=== PATIENT | male | born 1975 | race Caucasian/White ===

== ENCOUNTER 2016-12-27 10:52 | Inpatient (IN) | payer OTHER ==
[~2016-12-27] VITALS: Ht 188 cm; Wt 108.9 kg
[2016-12-27] MEDS ORDERED: IV NORMAL SALINE 1000ML BAG 1,000 ML IV SCH (12:00)
[2016-12-27] MEDS ORDERED: LEVOFLOXACIN PER PHARMACY MC PRN (12:00)
[2016-12-27] MEDS ORDERED: 0.9 % SODIUM CHLORIDE 10 ML DISP.SYRIN. IV PRN (12:00)
[2016-12-27] MEDS ORDERED: FENTANYL PF 100 MCG/2 ML VIAL. IV ONE (12:00)
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
[2016-12-27 12:42] LABS: CALCIUM 9.2 mg/dL (8.5-10.1); GFR 82.3; POTASSIUM 3.5 mmol/L (3.5-5.1)
[2016-12-27 12:49] LABS: ALBUMIN 4.1 g/dL (3.4-5.0); ALBUMIN/GLOBULIN RATIO 0.9 (1.0-1.7); TOTAL BILIRUBIN 0.8 mg/dL (0.2-1.0); TOTAL PROTEIN 8.5 g/dL (6.4-8.2)
[2016-12-27 12:57] LABS: BASO # 0.1 x10^3/uL (0.0-0.2); BASO % 1 % (0-3); EOS % 1 % (0-3); HEMATOCRIT 39.2 % (39.0-53.0); HEMOGLOBIN 13.3 g/dL (13.0-17.5); LYMPH # 1.5 x10^3/uL (1.0-4.8); LYMPH % 17 % (24-48); MEAN CORPUSCULAR HEMOGLOBIN 31 pg (25-35); MEAN CORPUSCULAR HGB CONC 34 g/dL (31-37); MEAN CORPUSCULAR VOLUME 92 fL (79-100); MONO % 8 % (0-9); NEUT % 74 % (31-73); PLATELET COUNT 235 x10^3/uL (140-400); RED BLOOD COUNT 4.29 x10^6/uL (4.30-5.70); RED CELL DISTRIBUTION WIDTH 12.8 % (11.5-14.5); WHITE BLOOD COUNT 9.2 x10^3/uL (4.0-11.0)
--- NOTE | 2016-12-27 13:01 | PDOC ---
Infectious Disease Note Vital Sign Vital Signs Vital Signs Date Time Temp Pulse Resp B/P Pulse Ox O2 Delivery O2 Flow Rate FiO2 12/27/16 11:04 98.4 66 20 125/83 98 98.4 Labs Lab Laboratory Tests Test 12/27/16 12:20 Sodium Level 141mmol/L (136-145) Potassium Level 3.5mmol/L (3.5-5.1) Chloride Level 101mmol/L (98-107) Carbon Dioxide Level 29mmol/L (21-32) Anion Gap 11 (6-14) Blood Urea Nitrogen 14mg/dL (8-26) Creatinine 1.0mg/dL (0.7-1.3) Estimated GFR (Cockcroft-Gault) 82.3 BUN/Creatinine Ratio 14 (6-20) Glucose Level 100mg/dL (70-99) Calcium Level 9.2mg/dL (8.5-10.1) Total Bilirubin 0.8mg/dL (0.2-1.0) Aspartate Amino Transf (AST/SGOT) 44U/L (15-37) Alanine Aminotransferase (ALT/SGPT) 40U/L (16-63) Alkaline Phosphatase 72U/L (46-116) Total Protein 8.5g/dL (6.4-8.2) Albumin 4.1g/dL (3.4-5.0) Albumin/Globulin Ratio 0.9 (1.0-1.7) Random Vancomycin Level mcg/mL Objective Assessment Preseptal cellulitis rt Hep C Plan Plan of Care vanc and zosyn also add clinda for 3 days bc supportive care antiinflammatory d/w ER physician DIDIER HASSAN MD Dec 27, 2016 13:01
[2016-12-27] MEDS ORDERED: IOHEXOL 300 MG/ML 75 ML VIAL IV ONE (13:30)
[2016-12-27] MEDS ORDERED: CONTRAST GIVEN MC PRN (13:45)
[2016-12-27] MEDS ORDERED: MORPHINE SULFATE 10 MG/ML VIAL. IV ONE (13:45)
[2016-12-27] MEDS ORDERED: MEROPENEM 500 MG in IV NORMAL SALINE 50ML 50 ML IV ONE (14:00)
[2016-12-27] MEDS ORDERED: CLINDAMYCIN 600MG PREMIX 50 ML IV ONE (14:00)
[2016-12-27] MEDS ORDERED: VANCOMYCIN 2 GM in IV NORMAL SALINE 500ML BAG 500 ML IV ONE (14:00)
--- NOTE | 2016-12-27 14:57 | PDOC1 ---
History and Physical Date of Admission Date of Admission DATE: 12/27/16 TIME: 14:49 Identification/Chief Complaint Chief Complaint facial swelling Source Source: Chart review, Patient History of Present Illness History of Present Illness Mr. Coppola, is a 41 year old male, incerated at [facility], admit from ER, with marked right facial swelling and redness that started 0500, noted prior history of periorbital cellulitis 4 mos ago, tx at [facility]. no fall, noinjury, no elicit, remote maxillofacial trauma from prior injury. . He states that he did have surgical debridement done at that time. He denies any history of recurrent skin infections. He denies history of diabetes. He denies fevers, chills, myalgias or arthralgias. It is reported the patient received a dose of vancomycin intravenously yesterday and then was receiving a dose this morning. The strength of the a dose is not known. Past Medical History Cardiovascular: No pertinent hx Pulmonary: No pertinent hx GI: No pertinent hx Heme/Onc: No pertinent hx Musculoskeletal: low back pain Rheumatologic: No pertinent hx Infectious disease: No pertinent hx ENT: No pertinent hx Past Surgical History Past Surgical History: Other Family History Family History: No Significant Social History Smoke: No ALCOHOL: none Current Problem List Problem List Problems Medical Problems: (1) Cellulitis Status: Acute Problems: Current Medications Current Medications Current Medications Sodium Chloride (Iv Sodium Chloride 0.9% 1000ml Bag) 1,000 ml @ 1,000 mls/hr Q1H IV Last administered on 12/27/16 12:19; Start 12/27/16 at 12:00; Stop at 12:59; Status DC Sodium Chloride (Normal Saline Flush) 10 ml QSHIFT PRN IV AFTER MEDS AND BLOOD DRAWS; Start 12/27/16 at 12:00 Fentanyl Citrate (Fentanyl 2ml Vial) 50 mcg 1X ONCE IV Last administered on 12:32; Start 12/27/16 at 12:00; Stop 12/27/16 at 12:07; Status DC Levofloxacin/ Dextrose 1 each 1 each PRN DAILY PRN MC SEE COMMENTS; Start 12/27 at 12:00; Stop 12/27/16 at 13:07; Status DC Levofloxacin/ Dextrose (LEVAQUIN 500mg PREMIX) 100 ml @ 100 mls/hr 1X ONCE IV Last administered on 12/27/16 12:34; Start 12/27/16 at 12:15; Stop 12/27/16 at 13:14; Status DC Vancomycin HCl 1 each 1 each PRN DAILY PRN MC SEE COMMENTS; Start 12/27/16 at 13:15; Status UNV Meropenem 500 mg/ Sodium Chloride 50 ml @ 100 mls/hr Q8HRS IV ; Start 12/27/16 at 14:00; Status UNV Clindamycin Phosphate 50 ml @ 100 mls/hr Q8HRS IV ; Start 12/27/16 at 14:00; Status UNV Vancomycin HCl 2 gm/Sodium Chloride 500 ml @ 250 mls/hr 1X ONCE IV ; Start at 14:00; Stop 12/27/16 at 15:59 Clindamycin Phosphate 50 ml @ 100 mls/hr 1X ONCE IV Last administered on 12/27 13:44; Start 12/27/16 at 14:00; Stop 12/27/16 at 14:29; Status DC Meropenem/Sodium Chloride (Merrem/Iv Sodium Chloride 0.9% 50ml) 50 ml @ 100 mls /hr 1X ONCE IV Last administered on 12/27/16 14:37; Start 12/27/16 at 14:00; Stop 12/27/16 at 14:29; Status DC Iohexol (Omnipaque 300 Mg/ml) 75 ml 1X ONCE IV Last administered on 12/27/16 14:04; Start 12/27/16 at 13:30; Stop 12/27/16 at 13:33; Status DC Info (Do NOT chart on this entry -- for MONITORING) 1 each PRN DAILY PRN MC SEE COMMENTS; Start 12/27/16 at 13:45; Stop 12/29/16 at 13:44 Morphine Sulfate 5 mg 1X ONCE IV Last administered on 12/27/16 13:54; Start 12/27/16 at 13:45; Stop 12/27/16 at 13:46; Status DC Allergies Allergies: Coded Allergies: Penicillins (Verified Allergy, Intermediate, face swelling, 12/27/16) gabapentin (Unverified Allergy, Intermediate, 12/27/16) gluten (Unverified Allergy, Intermediate, 12/27/16) ibuprofen (Unverified Allergy, Intermediate, 12/27/16) tramadol (Unverified Allergy, Intermediate, 12/27/16) ROS General: No: Appetite, Chills, Fatigue, Malaise, Night Sweats, Other PSYCHOLOGICAL ROS: No: Anxiety, Behavioral Disorder, Concentration difficultie , Decreased libido, Depression, Disorientation, Hallucinations, Hostility, Irritablity, Memory difficulties, Mood Swings, Obsessive thoughts, Other, Physical abuse, Sexual abuse, Sleep disturbances, Suicidal ideation Eyes: Yes Decreased vision (r), Yes Loss of vision (r), No Blurry vision, No Double vision, No Dry eyes, No Excessive tearing, No Itchy Eyes, No Other, No Photophobia, No Scotomata, No Uses contacts, No Uses glasses HEENT: No: Epistaxis, Heacaches, Hearing change, Nasal congestion, Nasal discharge, Oral lesions, Other, Sinus pain, Sneezing, Snoring, Sore Throat, Tinnitus, Vertigo, Visual Changes, Vocal changes Respiratory: No: Cough, Hemoptysis, Orthopnea, Other, Pleuritic Pain, SOB with excertion, Shortness of breath, Sputum Changes, Stridor, Tachypnea, Wheezing Cardiovascular: No Chest Pain, No Edema, No Lt Headedness, No Orthopnea, No Other, No Palpitations, No Paroxysmal Noc. Dyspnea Gastrointestinal: No Abdominal Pain, No Constipation, No Diarrhea, No Hematochezia, No Melena, No Nausea, No Other, No Vomiting Genitourinary: No , No , No , No , No , No , No , No Discharge, No Dysuria, No Flank Pain, No Frequency, No Hematuria, No Incontinence, No Other, No Pain, No Retention, No Urgency Musculoskeletal: No Gait Disturbance, No Joint Pain, No Joint Stiffness, No Joint Swelling, No Muscle Pain, No Muscular Weakness, No Other, No Pain In:, No Swelling In: Neurological: No Behavorial Changes, No Bowel/Bladder ControlChng, No Confusion , No Dizziness, No Gait Disturbance, No Headaches, No Impaired Coord/balance, No Memory Loss, No Numbness/Tingling, No Other, No Seizures, No Speech Problems , No Tremors, No Visual Changes, No Weakness Skin: Yes Other (face pain), Yes Rash, Yes Skin Lesion Changes (penis) Physical Exam General: Alert, Oriented X3, Cooperative, No acute distress HEENT: Mucous membr. moist/pink, Other (right eye red and swollen) Lungs: Clear to auscultation, Normal air movement Heart: no gallops, no murmurs Abdomen: Normal bowel sounds, Soft Rectal Exam: not examined Extremities: No clubbing, No edema Skin: Other (marked facial cellilits with swelling to periorbit, eye swollen shut) Neuro: Normal tone Psych/Mental Status: Mood NL Vitals Vitals Vital Signs Date Time Temp Pulse Resp B/P Pulse Ox O2 Delivery O2 Flow Rate FiO2 12/27/16 13:54 Room Air 12/27/16 13:39 82 136/77 99 12/27/16 11:04 98.4 20 98.4 Labs Labs Laboratory Tests Test 12/27/16 12:20 12/27/16 13:10 White Blood Count 9.2x10^3/uL (4.0-11.0) Red Blood Count 4.29x10^6/uL (4.30-5.70) Hemoglobin 13.3g/dL (13.0-17.5) Hematocrit 39.2% (39.0-53.0) Mean Corpuscular Volume 92fL (79-100) Mean Corpuscular Hemoglobin 31pg (25-35) Mean Corpuscular Hemoglobin Concent 34g/dL (31-37) Red Cell Distribution Width 12.8% (11.5-14.5) Platelet Count 235x10^3/uL (140-400) Neutrophils (%) (Auto) 74% (31-73) Lymphocytes (%) (Auto) 17% (24-48) Monocytes (%) (Auto) 8% (0-9) Eosinophils (%) (Auto) 1% (0-3) Basophils (%) (Auto) 1% (0-3) Neutrophils # (Auto) 6.8x10^3uL (1.8-7.7) Lymphocytes # (Auto) 1.5x10^3/uL (1.0-4.8) Monocytes # (Auto) 0.7x10^3/uL (0.0-1.1) Eosinophils # (Auto) 0.1x10^3/uL (0.0-0.7) Basophils # (Auto) 0.1x10^3/uL (0.0-0.2) Sodium Level 141mmol/L (136-145) Potassium Level 3.5mmol/L (3.5-5.1) Chloride Level 101mmol/L (98-107) Carbon Dioxide Level 29mmol/L (21-32) Anion Gap 11 (6-14) Blood Urea Nitrogen 14mg/dL (8-26) Creatinine 1.0mg/dL (0.7-1.3) Estimated GFR (Cockcroft-Gault) 82.3 BUN/Creatinine Ratio 14 (6-20) Glucose Level 100mg/dL (70-99) Calcium Level 9.2mg/dL (8.5-10.1) Total Bilirubin 0.8mg/dL (0.2-1.0) Aspartate Amino Transf (AST/SGOT) 44U/L (15-37) Alanine Aminotransferase (ALT/SGPT) 40U/L (16-63) Alkaline Phosphatase 72U/L (46-116) Total Protein 8.5g/dL (6.4-8.2) Albumin 4.1g/dL (3.4-5.0) Albumin/Globulin Ratio 0.9 (1.0-1.7) Random Vancomycin Level mcg/mL Lactic Acid Level 2.1mmol/L (0.4-2.0) Laboratory Tests Test 12/27/16 12:20 12/27/16 13:10 White Blood Count 9.2x10^3/uL (4.0-11.0) Red Blood Count 4.29x10^6/uL (4.30-5.70) Hemoglobin 13.3g/dL (13.0-17.5) Hematocrit 39.2% (39.0-53.0) Mean Corpuscular Volume 92fL (79-100) Mean Corpuscular Hemoglobin 31pg (25-35) Mean Corpuscular Hemoglobin Concent 34g/dL (31-37) Red Cell Distribution Width 12.8% (11.5-14.5) Platelet Count 235x10^3/uL (140-400) Neutrophils (%) (Auto) 74% (31-73) Lymphocytes (%) (Auto) 17% (24-48) Monocytes (%) (Auto) 8% (0-9) Eosinophils (%) (Auto) 1% (0-3) Basophils (%) (Auto) 1% (0-3) Neutrophils # (Auto) 6.8x10^3uL (1.8-7.7) Lymphocytes # (Auto) 1.5x10^3/uL (1.0-4.8) Monocytes # (Auto) 0.7x10^3/uL (0.0-1.1) Eosinophils # (Auto) 0.1x10^3/uL (0.0-0.7) Basophils # (Auto) 0.1x10^3/uL (0.0-0.2) Sodium Level 141mmol/L (136-145) Potassium Level 3.5mmol/L (3.5-5.1) Chloride Level 101mmol/L (98-107) Carbon Dioxide Level 29mmol/L (21-32) Anion Gap 11 (6-14) Blood Urea Nitrogen 14mg/dL (8-26) Creatinine 1.0mg/dL (0.7-1.3) Estimated GFR (Cockcroft-Gault) 82.3 BUN/Creatinine Ratio 14 (6-20) Glucose Level 100mg/dL (70-99) Calcium Level 9.2mg/dL (8.5-10.1) Total Bilirubin 0.8mg/dL (0.2-1.0) Aspartate Amino Transf (AST/SGOT) 44U/L (15-37) Alanine Aminotransferase (ALT/SGPT) 40U/L (16-63) Alkaline Phosphatase 72U/L (46-116) Total Protein 8.5g/dL (6.4-8.2) Albumin 4.1g/dL (3.4-5.0) Albumin/Globulin Ratio 0.9 (1.0-1.7) Random Vancomycin Level mcg/mL Lactic Acid Level 2.1mmol/L (0.4-2.0) VTE Prophylaxis Ordered VTE Prophylaxis Devices: No VTE Pharmacological Prophylaxi: Yes Assessment/Plan Assessment/Plan Facial cellulitis periorbital, consult optho, may need I+D if not improved area marked ID consulted, ravi Doyle admit JESSICA MARTINEZ MD Dec 27, 2016 14:56
[2016-12-27 15:00] VITALS: BP 134/79
[2016-12-27] MEDS ORDERED: POTASSIUM CHLORIDE 20 MEQ TABLET.ER. PO ONE (15:00)
[2016-12-27] MEDS ORDERED: DOCUSATE SODIUM 100 MG CAPSULE PO PRN (15:00)
[2016-12-27] MEDS: POLYETHYLENE GLYCOL 3350 17 GM PACKET. PO SCH (15:00)
[2016-12-27] MEDS ORDERED: DIPHENHYDRAMINE 50 MG/ML VIAL IVP ONE (15:00)
--- NOTE | 2016-12-27 15:11 | RAD ---
Maxillofacial CT with contrast, 12/27/2016: History: Right periorbital cellulitis Multidetector CT imaging was performed following an IV bolus injection of iodinated contrast material. Multiplanar reconstructions were produced. There is extensive subcutaneous edema over the right cheek and right eye extending over the right zygoma and right forehead. There is a small focal fluid collection along the inferolateral aspect of the right eye anteriorly as best seen on coronal image 8 of series #5, and axial image 44 of series #2. On the coronal images this measures approximately 22 x 13 mm. The globe itself shows no intrinsic abnormality. The retroglobal soft tissues including the optic nerve and extraocular musculature are unremarkable. There is mild mucosal thickening in the right ethmoid and frontal sinuses. The other paranasal sinuses are clear. The left orbital region is unremarkable. No underlying bony abnormality is detected. IMPRESSION: 1. Extensive right periorbital inflammation as described above with a small focal fluid collection inferolaterally raising the possibility of developing abscess. 2. Mild inflammatory changes in the right ethmoid and frontal sinuses. PQRS Compliance Statement: One or more of the following individualized dose reduction techniques were utilized for this examination: 1. Automated exposure control 2. Adjustment of the mA and/or kV according to patient size 3. Use of iterative reconstruction technique
[2016-12-27] MEDS: OXYCODONE IR 5 MG TABLET. PO PRN (16:12)
[2016-12-27] MEDS: DO NOT USE 40 MG/0.4 ML DISP.SYRIN SQ SCH (16:12)
[2016-12-27] MEDS: VANCOMYCIN PER PHARMACY MC PRN (17:58)
[2016-12-27] MEDS: FENTANYL PF 100 MCG/2 ML VIAL. IV PRN ×2 (18:23→21:22)
--- NOTE | 2016-12-27 19:12 | CONS ---
DATE OF CONSULTATION: 12/27/2016 REQUESTING PHYSICIAN: Dr. Yosef Yanez from the ER. REASON FOR CONSULTATION: Orbital cellulitis. HISTORY OF PRESENT ILLNESS: This is a 41-year-old, gentleman, who is from the local [facility]al facility, who was brought in. The patient developed right-sided facial swelling that started 5:00 p.m. yesterday and now it has progressed that he is not able to open the right eye; with redness, tenderness spreading from the eye, the upper and lower lids into the face. The patient was given one dose of vancomycin at the facility and was brought in here. The patient denies any nausea, vomiting, diarrhea, chest pain, shortness breath. Denies or bee or wasp sting. Interestingly, the same thing happened in September when he was taken to the [facility] and was treated there and he completely recovered until yesterday at 5:00 p.m. PAST MEDICAL HISTORY: Positive for hepatitis C. PAST SURGICAL HISTORY: The patient has had bilateral knee surgery, finger and thumb surgery, and right eye surgery done in the past. SOCIAL HISTORY: Negative for smoking, alcohol, illicit drug use. ALLERGIES: LISTED ALLERGIC TO PENICILLIN. HE WAS VERY YOUNG, HE DOES NOT REMEMBER, BUT EVIDENTLY HE HAD SHORTNESS OF BREATH. CURRENT MEDICATIONS: The patient did receive one dose of vancomycin and one dose of Levaquin. REVIEW OF SYSTEMS: As per HPI. All other systems reviewed are negative. PHYSICAL EXAMINATION: GENERAL: Alert, oriented gentleman, not in any distress. VITAL SIGNS: Stable, afebrile. HEENT: The patient does have extensive swelling of the right eye, with unable to open because of swelling of the upper and lower eyelids. By the lids, pupil is round, reacting, conjunctiva is normal. The patient's eyeball movements are normal. Does have significant swelling of the face on the right side with tenderness and redness. Left eye is unremarkable. Mouth: The patient does not have any lesions into the buccal mucosa or on to the roof of the mouth and there are no obvious nasal lesions. NECK: Supple, no JVP, no lymphadenopathy. LUNGS: Clear. HEART: S1, S2 regular. ABDOMEN: Benign. EXTREMITIES: No edema or cyanosis. SKIN: Unremarkable. NEUROLOGIC: The patient is neurologically intact. LABORATORY DATA: White count is pending. BUN and creatinine are normal. Liver functions are normal. CT scan of the orbit is pending. IMPRESSION: 1. Orbital and most likely to be periorbital cellulitis. 2. Hepatitis C. RECOMMENDATIONS: I would use vancomycin, meropenem, and clindamycin. Supportive care. We will check CT, WBC count. Blood cultures have been done. Anti-inflammatory. We will continue to follow. Thank you very much, Dr. Yanez, for giving me the opportunity to participate in this patient's care. DIDIER HASSAN MD DR: KEISHA/byron JOB#: [id number] / [id number]
[2016-12-27 19:20] VITALS: BP 134/73
[2016-12-27] MEDS: TAMSULOSIN 0.4 MG CAP.ER.24H. PO SCH (19:43)
[2016-12-27] MEDS: OXYCODONE/APAP 7.5/325 TABLET. PO PRN (19:44)
[2016-12-27] MEDS: MEROPENEM 500 MG in IV NORMAL SALINE 50ML 50 ML IV SCH (21:21)
[2016-12-27] MEDS: DIPHENHYDRAMINE HCL 25 MG CAPSULE PO PRN (21:21)
[2016-12-27] MEDS: CLINDAMYCIN 600MG PREMIX 50 ML IV SCH (22:23)
[2016-12-27 23:01] VITALS: BP 125/61
[2016-12-27] MEDS: VANCOMYCIN 1.5 GM in IV NORMAL SALINE 500ML BAG 500 ML IV SCH (23:48)
--- NOTE | 2016-12-28 00:50 | ACF ---
Admission Forms Criteria CELLULITIS Clinical Indications for Admission to Inpatient Care (Place 'X' for any and all applicable criteria): Admission is indicated for ANY ONE of the following(1)(2)(3)(4)(5): [ ]I. Limb-threatening infection [ ]II. High-risk comorbid condition as indicated by ANY ONE of the following: [ ]a) Uncontrolled diabetes (eg, HbA1c greater than 10% (0.1)) [ ]b) Cirrhosis [ ]c) Neutropenia [ ]d) Asplenia [ ]e) Immunosuppression [ ]f) Symptomatic heart failure [ ]III. Failure of outpatient therapy as indicated by ALL of the following: [ ]a) Progression or no improvement after adequate trial (minimum of 48 hours, with longer period for stable lower extremity infection) [ ]b) Adequate antibiotic regimen as indicated by use of ANY ONE of the following: [ ]i) First-generation cephalosporin (e.g., cephalexin) [ ]ii) Antistaphylococcal penicillin (e.g., dicloxacillin) [ ]iii) Penicillin-allergic patient regimen (clindamycin, extended-spectrum fluoroquinolone, or doxycycline) [ ]iv) Resistant organism (eg, methicillin-resistant Staphylococcus aureus) regimen (6) [ ]c) Outpatient intravenous therapy regimen is not appropriate due to ANY ONE of the following. (7)(8)(9)(10): [ ]i) It was tried and was not successful (eg, progression of infection). [ ]ii) It is not available or cannot be arranged in a clinically appropriate time frame (e.g., the next day). [ ]iii) Clinical presentation (eg, acuity of infection, rapidity of progression, confirmed or suspected bacteremia) is judged to require ALL of the following: [ ]1) Immediate initiation of intravenous therapy ( eg, cannot wait for next day) [ ]2) Intensity of patient monitoring and observation (eg, vital sign measurement, checks for infection progression) that cannot be provided at other than inpatient level of care [ ]IV. Mental status changes [ ]V. Bacteremia [ ]. Hemodynamic instability [ ]VII. Suspected necrotizing soft tissue infection (e.g., gas in tissue)(11)( 12) [ ]VIII. Orbital infection (13)(14) [ ]IX. Associated surgical procedure (e.g., abscess drainage, debridement) not amenable to outpatient, emergency department, or observation care [ ]X. Cutaneous gangrene [ ]XI. High fever (temperature greater than 39.5 degrees C (103.1 degrees F) (oral)) not responsive to outpatient, emergency department, or observation care therapy [ ]XIII. Inpatient admission required rather than observation care (Also use Cellulitis: Observation Care as appropriate) because of ANY ONE of the following : [X]a) Periorbital or perineal infection that is severe or worsening [ ]b) Severe pain requiring acute inpatient management [ ]c) IV fluid to replace significant ongoing (e.g., for over 24 hours) losses (greater than 3L/m2 per day) [ ]d) Compartment syndrome monitoring (17) [ ]e) Strict or protective (eg, laminar flow) isolation [ ]f) Urgent debridement or skin grafting [ ]g) Bone or joint debridement [ ]h) Immediate inpatient surgery [ ]i) Other condition, treatment or monitoring requiring inpatient admission Extended stay beyond goal length of stay may be needed for (1)(18): [ ]a) Necrotizing soft tissue infection or fasciitis [ ]b) Gram-negative infection [ ]c) Methicillin-resistant Staphylococcal aureus (MRSA) infection [ ]d) Peripheral venous insufficiency with cellulitis [ ]e) Extensive edema [ ]f) Sepsis or continued Hemodynamic instability [ ]g) Continued high fever or mental status change [ ]h) Bacteremia [ ]i) Active serious comorbid conditions ( eg, heart failure, renal insufficiency) The original [employer] content created by [employer] has been revised. The portions of the content which have been revised are identified through the use of italic text or in bold, and [facility] has neither reviewed nor approved the modified material. All other unmodified content is copyright [facility] Please see references footnoted in the original [facility] edition 2016 Admission Criteria Met?: Yes SPENCER CASILLAS Dec 28, 2016 00:50
[2016-12-28] MEDS: FENTANYL PF 100 MCG/2 ML VIAL. IV PRN ×5 (01:36→22:48)
[2016-12-28 03:48] VITALS: BP 139/82
[2016-12-28] MEDS: OXYCODONE/APAP 7.5/325 TABLET. PO PRN ×3 (04:32→16:14)
[2016-12-28] MEDS: CLINDAMYCIN 600MG PREMIX 50 ML IV SCH ×3 (05:25→22:36)
[2016-12-28] MEDS: MEROPENEM 500 MG in IV NORMAL SALINE 50ML 50 ML IV SCH ×3 (06:05→21:16)
[2016-12-28 07:00] VITALS: BP 130/76
[2016-12-28] MEDS: VANCOMYCIN 1.5 GM in IV NORMAL SALINE 500ML BAG 500 ML IV SCH ×2 (08:12→17:01)
[2016-12-28] MEDS: TAMSULOSIN 0.4 MG CAP.ER.24H. PO SCH ×2 (08:12→21:17)
[2016-12-28] MEDS: OXYCODONE IR 5 MG TABLET. PO PRN ×4 (08:26→22:34)
--- NOTE | 2016-12-28 08:46 | PDOC ---
Infectious Disease Note Subjective Subjective pt is feeling ok, swelling ++, some swelling on left side also ROS ROS GEN: Denies fevers, chills, sweats HEENT: Denies blurred vision, sore throat CV: Denies chest pain RESP: Denies shortness of air, cough GI: Denies n/v/d NEURO: Denies confusion, dizziness MSK: Denies weakness, Vital Sign Vital Signs Vital Signs Date Time Temp Pulse Resp B/P Pulse Ox O2 Delivery O2 Flow Rate FiO2 12/28/16 08:26 94 Room Air 12/28/16 05:44 20 12/28/16 03:48 100.1 85 139/82 100.1 Physical Exam PHYSICAL EXAM GENERAL: NAD, Alert HEENT: PERRL, OC/OP,, rt eye swollen and red NECK: Supple, no JVD, no LN LUNGS: Clear HEART: S1S2, no gallop, no murmur ABD: Soft, NT, no organomegaly, no rebound EXT: No edema, no cyanosis 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, 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, no focal neurologic deficit SKIN: No rash IV: ok Labs Lab Laboratory Tests Test 12/27/16 12:20 12/27/16 13:10 White Blood Count 9.2x10^3/uL (4.0-11.0) Red Blood Count 4.29x10^6/uL (4.30-5.70) Hemoglobin 13.3g/dL (13.0-17.5) Hematocrit 39.2% (39.0-53.0) Mean Corpuscular Volume 92fL (79-100) Mean Corpuscular Hemoglobin 31pg (25-35) Mean Corpuscular Hemoglobin Concent 34g/dL (31-37) Red Cell Distribution Width 12.8% (11.5-14.5) Platelet Count 235x10^3/uL (140-400) Neutrophils (%) (Auto) 74% (31-73) Lymphocytes (%) (Auto) 17% (24-48) Monocytes (%) (Auto) 8% (0-9) Eosinophils (%) (Auto) 1% (0-3) Basophils (%) (Auto) 1% (0-3) Neutrophils # (Auto) 6.8x10^3uL (1.8-7.7) Lymphocytes # (Auto) 1.5x10^3/uL (1.0-4.8) Monocytes # (Auto) 0.7x10^3/uL (0.0-1.1) Eosinophils # (Auto) 0.1x10^3/uL (0.0-0.7) Basophils # (Auto) 0.1x10^3/uL (0.0-0.2) Sodium Level 141mmol/L (136-145) Potassium Level 3.5mmol/L (3.5-5.1) Chloride Level 101mmol/L (98-107) Carbon Dioxide Level 29mmol/L (21-32) Anion Gap 11 (6-14) Blood Urea Nitrogen 14mg/dL (8-26) Creatinine 1.0mg/dL (0.7-1.3) Estimated GFR (Cockcroft-Gault) 82.3 BUN/Creatinine Ratio 14 (6-20) Glucose Level 100mg/dL (70-99) Calcium Level 9.2mg/dL (8.5-10.1) Total Bilirubin 0.8mg/dL (0.2-1.0) Aspartate Amino Transf (AST/SGOT) 44U/L (15-37) Alanine Aminotransferase (ALT/SGPT) 40U/L (16-63) Alkaline Phosphatase 72U/L (46-116) Total Protein 8.5g/dL (6.4-8.2) Albumin 4.1g/dL (3.4-5.0) Albumin/Globulin Ratio 0.9 (1.0-1.7) Random Vancomycin Level mcg/mL Lactic Acid Level 2.1mmol/L (0.4-2.0) Objective Assessment Preseptal orbital cellulitis rt Hep C Fever Leukocytosis ? Orbital abscess Plan Plan of Care vanc and zosyn also clinda for 3 days bc supportive care antiinflammatory Ophth input pending DIDIER HASSAN MD Dec 28, 2016 08:46
[2016-12-28] MEDS: POLYETHYLENE GLYCOL 3350 17 GM PACKET. PO SCH (08:48)
[2016-12-28] MEDS ORDERED: MORPHINE ER 30 MG TABLET.ER PO ONE (09:30)
[2016-12-28] MEDS ORDERED: KETOROLAC TROMETHAMINE 30 MG/ML SYRINGE. IV ONE (10:00)
--- NOTE | 2016-12-28 10:58 | PDOC ---
PROGRESS NOTES Chief Complaint Chief Complaint Facial cellulitis periorbital, consult optho, may need I+D if not improved Hep C, History of Present Illness History of Present Illness cont vanc and merrem ID following Optho consulted Increase narcotics pain med doses try Ketoralac. He had reported intol to Ibuprofen, but he just wanted to avoid due to Hep C, I provided education on this vs. tylenol Tramadol allergy is upset stomach large narcotic tolerance so far, try MS contin 30 X1, may need BID Vitals Vitals Vital Signs Date Time Temp Pulse Resp B/P Pulse Ox O2 Delivery O2 Flow Rate FiO2 12/28/16 09:42 94 Room Air 12/28/16 07:00 99.1 83 20 130/76 99.1 Physical Exam General: Alert, Oriented X3, Cooperative, No acute distress Heart: Regular rate, No murmurs Abdomen: Normal bowel sounds, Soft Extremities: No clubbing, No edema Skin: Other (marked facial cellilits with swelling to periorbit, eye swollen shut) Labs LABS Laboratory Tests Test 12/27/16 12:20 12/27/16 13:10 White Blood Count 9.2x10^3/uL (4.0-11.0) Red Blood Count 4.29x10^6/uL (4.30-5.70) Hemoglobin 13.3g/dL (13.0-17.5) Hematocrit 39.2% (39.0-53.0) Mean Corpuscular Volume 92fL (79-100) Mean Corpuscular Hemoglobin 31pg (25-35) Mean Corpuscular Hemoglobin Concent 34g/dL (31-37) Red Cell Distribution Width 12.8% (11.5-14.5) Platelet Count 235x10^3/uL (140-400) Neutrophils (%) (Auto) 74% (31-73) Lymphocytes (%) (Auto) 17% (24-48) Monocytes (%) (Auto) 8% (0-9) Eosinophils (%) (Auto) 1% (0-3) Basophils (%) (Auto) 1% (0-3) Neutrophils # (Auto) 6.8x10^3uL (1.8-7.7) Lymphocytes # (Auto) 1.5x10^3/uL (1.0-4.8) Monocytes # (Auto) 0.7x10^3/uL (0.0-1.1) Eosinophils # (Auto) 0.1x10^3/uL (0.0-0.7) Basophils # (Auto) 0.1x10^3/uL (0.0-0.2) Sodium Level 141mmol/L (136-145) Potassium Level 3.5mmol/L (3.5-5.1) Chloride Level 101mmol/L (98-107) Carbon Dioxide Level 29mmol/L (21-32) Anion Gap 11 (6-14) Blood Urea Nitrogen 14mg/dL (8-26) Creatinine 1.0mg/dL (0.7-1.3) Estimated GFR (Cockcroft-Gault) 82.3 BUN/Creatinine Ratio 14 (6-20) Glucose Level 100mg/dL (70-99) Calcium Level 9.2mg/dL (8.5-10.1) Total Bilirubin 0.8mg/dL (0.2-1.0) Aspartate Amino Transf (AST/SGOT) 44U/L (15-37) Alanine Aminotransferase (ALT/SGPT) 40U/L (16-63) Alkaline Phosphatase 72U/L (46-116) Total Protein 8.5g/dL (6.4-8.2) Albumin 4.1g/dL (3.4-5.0) Albumin/Globulin Ratio 0.9 (1.0-1.7) Random Vancomycin Level mcg/mL Lactic Acid Level 2.1mmol/L (0.4-2.0) Review of Systems Review of Systems facial pain and pressure, some difficulty chewing, can swallow liquids ok Assessment and Plan Assessmemt and Plan Problems Medical Problems: (1) Cellulitis Status: Acute (2) Preseptal cellulitis of right eye Status: Acute Problems: Comment Review of Relevant I have reviewed the following items [place] (where applicable) has been applied. Labs Laboratory Tests Test 12/27/16 12:20 12/27/16 13:10 White Blood Count 9.2x10^3/uL (4.0-11.0) Red Blood Count 4.29x10^6/uL (4.30-5.70) Hemoglobin 13.3g/dL (13.0-17.5) Hematocrit 39.2% (39.0-53.0) Mean Corpuscular Volume 92fL (79-100) Mean Corpuscular Hemoglobin 31pg (25-35) Mean Corpuscular Hemoglobin Concent 34g/dL (31-37) Red Cell Distribution Width 12.8% (11.5-14.5) Platelet Count 235x10^3/uL (140-400) Neutrophils (%) (Auto) 74% (31-73) Lymphocytes (%) (Auto) 17% (24-48) Monocytes (%) (Auto) 8% (0-9) Eosinophils (%) (Auto) 1% (0-3) Basophils (%) (Auto) 1% (0-3) Neutrophils # (Auto) 6.8x10^3uL (1.8-7.7) Lymphocytes # (Auto) 1.5x10^3/uL (1.0-4.8) Monocytes # (Auto) 0.7x10^3/uL (0.0-1.1) Eosinophils # (Auto) 0.1x10^3/uL (0.0-0.7) Basophils # (Auto) 0.1x10^3/uL (0.0-0.2) Sodium Level 141mmol/L (136-145) Potassium Level 3.5mmol/L (3.5-5.1) Chloride Level 101mmol/L (98-107) Carbon Dioxide Level 29mmol/L (21-32) Anion Gap 11 (6-14) Blood Urea Nitrogen 14mg/dL (8-26) Creatinine 1.0mg/dL (0.7-1.3) Estimated GFR (Cockcroft-Gault) 82.3 BUN/Creatinine Ratio 14 (6-20) Glucose Level 100mg/dL (70-99) Calcium Level 9.2mg/dL (8.5-10.1) Total Bilirubin 0.8mg/dL (0.2-1.0) Aspartate Amino Transf (AST/SGOT) 44U/L (15-37) Alanine Aminotransferase (ALT/SGPT) 40U/L (16-63) Alkaline Phosphatase 72U/L (46-116) Total Protein 8.5g/dL (6.4-8.2) Albumin 4.1g/dL (3.4-5.0) Albumin/Globulin Ratio 0.9 (1.0-1.7) Random Vancomycin Level mcg/mL Lactic Acid Level 2.1mmol/L (0.4-2.0) Laboratory Tests Test 12/27/16 12:20 12/27/16 13:10 White Blood Count 9.2x10^3/uL (4.0-11.0) Red Blood Count 4.29x10^6/uL (4.30-5.70) Hemoglobin 13.3g/dL (13.0-17.5) Hematocrit 39.2% (39.0-53.0) Mean Corpuscular Volume 92fL (79-100) Mean Corpuscular Hemoglobin 31pg (25-35) Mean Corpuscular Hemoglobin Concent 34g/dL (31-37) Red Cell Distribution Width 12.8% (11.5-14.5) Platelet Count 235x10^3/uL (140-400) Neutrophils (%) (Auto) 74% (31-73) Lymphocytes (%) (Auto) 17% (24-48) Monocytes (%) (Auto) 8% (0-9) Eosinophils (%) (Auto) 1% (0-3) Basophils (%) (Auto) 1% (0-3) Neutrophils # (Auto) 6.8x10^3uL (1.8-7.7) Lymphocytes # (Auto) 1.5x10^3/uL (1.0-4.8) Monocytes # (Auto) 0.7x10^3/uL (0.0-1.1) Eosinophils # (Auto) 0.1x10^3/uL (0.0-0.7) Basophils # (Auto) 0.1x10^3/uL (0.0-0.2) Sodium Level 141mmol/L (136-145) Potassium Level 3.5mmol/L (3.5-5.1) Chloride Level 101mmol/L (98-107) Carbon Dioxide Level 29mmol/L (21-32) Anion Gap 11 (6-14) Blood Urea Nitrogen 14mg/dL (8-26) Creatinine 1.0mg/dL (0.7-1.3) Estimated GFR (Cockcroft-Gault) 82.3 BUN/Creatinine Ratio 14 (6-20) Glucose Level 100mg/dL (70-99) Calcium Level 9.2mg/dL (8.5-10.1) Total Bilirubin 0.8mg/dL (0.2-1.0) Aspartate Amino Transf (AST/SGOT) 44U/L (15-37) Alanine Aminotransferase (ALT/SGPT) 40U/L (16-63) Alkaline Phosphatase 72U/L (46-116) Total Protein 8.5g/dL (6.4-8.2) Albumin 4.1g/dL (3.4-5.0) Albumin/Globulin Ratio 0.9 (1.0-1.7) Random Vancomycin Level mcg/mL Lactic Acid Level 2.1mmol/L (0.4-2.0) Medications Current Medications Sodium Chloride (Iv Sodium Chloride 0.9% 1000ml Bag) 1,000 ml @ 1,000 mls/hr Q1H IV Last administered on 12/27/16 12:19; Start 12/27/16 at 12:00; Stop at 12:59; Status DC Sodium Chloride (Normal Saline Flush) 10 ml QSHIFT PRN IV AFTER MEDS AND BLOOD DRAWS; Start 12/27/16 at 12:00 Fentanyl Citrate (Fentanyl 2ml Vial) 50 mcg 1X ONCE IV Last administered on 12:32; Start 12/27/16 at 12:00; Stop 12/27/16 at 12:07; Status DC Levofloxacin/ Dextrose 1 each 1 each PRN DAILY PRN MC SEE COMMENTS; Start 12/27 at 12:00; Stop 12/27/16 at 13:07; Status DC Levofloxacin/ Dextrose (LEVAQUIN 500mg PREMIX) 100 ml @ 100 mls/hr 1X ONCE IV Last administered on 12/27/16 12:34; Start 12/27/16 at 12:15; Stop 12/27/16 at 13:14; Status DC Vancomycin HCl 1 each 1 each PRN DAILY PRN MC SEE COMMENTS Last administered on 12/27/16 17:58; Start 12/27/16 at 13:15 Meropenem 500 mg/ Sodium Chloride 50 ml @ 100 mls/hr Q8HRS IV Last administered on 12/28/16 06:05; Start 12/27/16 at 22:00 Clindamycin Phosphate 50 ml @ 100 mls/hr Q8HRS IV Last administered on 05:25; Start 12/27/16 at 22:00 Vancomycin HCl 2 gm/Sodium Chloride 500 ml @ 250 mls/hr 1X ONCE IV Last administered on 12/27/16 16:11; Start 12/27/16 at 14:00; Stop 12/27/16 at 15:59 ; Status DC Clindamycin Phosphate 50 ml @ 100 mls/hr 1X ONCE IV Last administered on 12/27 13:44; Start 12/27/16 at 14:00; Stop 12/27/16 at 14:29; Status DC Meropenem/Sodium Chloride (Merrem/Iv Sodium Chloride 0.9% 50ml) 50 ml @ 100 mls /hr 1X ONCE IV Last administered on 12/27/16 14:37; Start 12/27/16 at 14:00; Stop 12/27/16 at 14:29; Status DC Iohexol (Omnipaque 300 Mg/ml) 75 ml 1X ONCE IV Last administered on 12/27/16 14:04; Start 12/27/16 at 13:30; Stop 12/27/16 at 13:33; Status DC Info (Do NOT chart on this entry -- for MONITORING) 1 each PRN DAILY PRN MC SEE COMMENTS; Start 12/27/16 at 13:45; Stop 12/29/16 at 13:44 Morphine Sulfate 5 mg 1X ONCE IV Last administered on 12/27/16 13:54; Start 12/27/16 at 13:45; Stop 12/27/16 at 13:46; Status DC Oxycodone/ Acetaminophen (Percocet 7.5/ 325) 1 tab PRN Q4HRS PRN PO PAIN Last administered on 12/28/16 04:32; Start 12/27/16 at 15:00 Fentanyl Citrate (Fentanyl 2ml Vial) 75 mcg PRN Q2HR PRN IV PAIN Last administered on 12/28/16 08:26; Start 12/27/16 at 15:00; Stop 12/28/16 at 09:21 ; Status DC Diphenhydramine HCl (Benadryl) 50 mg 1X ONCE IVP Last administered on 15:11; Start 12/27/16 at 15:00; Stop 12/27/16 at 15:01; Status DC Diphenhydramine HCl (Benadryl) 50 mg PRN Q6HRS PRN PO ITCHING Last administered on 12/27/16 21:21; Start 12/27/16 at 15:00 Oxycodone HCl (Roxicodone) 10 mg PRN Q6HRS PRN PO PAIN Last administered on 08:26; Start 12/27/16 at 15:00; Stop 12/28/16 at 09:21; Status DC Enoxaparin Sodium (Lovenox Per Pharmacy Prophylaxis Dosing) 1 each PRN DAILY PRN MC SEE COMMENTS; Start 12/27/16 at 15:00 Polyethylene Glycol (miraLAX PACKET) 17 gm DAILY PO ; Start 12/27/16 at 15:00 Docusate Sodium (Colace) 100 mg PRN DAILY PRN PO CONSTIPATION; Start 12/27/16 at 15:00 Potassium Chloride (Klor-Con) 20 meq 1X ONCE PO Last administered on 15:11; Start 12/27/16 at 15:00; Stop 12/27/16 at 15:01; Status DC Enoxaparin Sodium (Lovenox 40mg Syringe) 40 mg Q24H SQ Last administered on 16:12; Start 12/27/16 at 16:00 Tamsulosin HCl 0.4 mg 0.4 mg BID PO Last administered on 12/28/16 08:12; Start 12/27/16 at 21:00 Vancomycin HCl/ Sodium Chloride (Iv Sodium Chloride 0.9% 500ml Bag) 500 ml @ 250 mls/hr Q8H IV Last administered on 12/28/16 08:12; Start 12/28/16 at 00:00 Vancomycin HCl 1 each 1X ONCE MC ; Start 12/28/16 at 15:30; Stop 12/28/16 at 15 :31 Fentanyl Citrate (Fentanyl 2ml Vial) 100 mcg PRN Q2HR PRN IV PAIN; Start at 09:30 Oxycodone HCl (Roxicodone) 10 mg PRN Q4HRS PRN PO PAIN; Start 12/28/16 at 15:00 Morphine Sulfate (Ms Contin) 30 mg 1X ONCE PO Last administered on 12/28/16 09:42; Start 12/28/16 at 09:30; Stop 12/28/16 at 09:31; Status DC Ketorolac Tromethamine (Toradol) 30 mg 1X ONCE IV Last administered on t 10:36; Start 12/28/16 at 10:00; Stop 12/28/16 at 10:14; Status DC Ketorolac Tromethamine 15 mg 15 mg PRN Q6HRS PRN IV PAIN; Start 12/28/16 at 10: 00; Stop 01/02/17 at 09:59 Potassium Chloride/Dextrose/ Sod Cl (KCl 20 Meq In D5W-1/2 NS) 1,000 ml @ 100 mls/hr Q10H IV ; Start 12/28/16 at 10:00 Vitals/I & O Vital Sign - Last 24 Hours 12/27/16 12/27/16 12/27/16 12/27/16 11:04 13:28 13:39 13:54 Temp 98.4 98.4 Pulse 66 81 82 Resp 20 B/P 125/83 131/87 136/77 Pulse Ox 98 99 99 O2 Delivery Room Air Room Air Room Air 12/27/16 12/27/16 12/27/16 12/27/16 14:15 14:39 15:00 15:30 Temp 98.5 98.5 Pulse 87 87 82 Resp 16 B/P 137/76 138/77 134/79 Pulse Ox 96 100 O2 Delivery Room Air Room Air Room Air 12/27/16 12/27/16 12/27/16 12/27/16 16:12 17:12 18:23 18:53 Pulse Ox 96 96 96 96 O2 Delivery Room Air Room Air 12/27/16 12/27/16 12/27/16 12/27/16 19:20 19:44 20:44 21:22 Temp 100.9 100.9 Pulse 89 Resp 18 20 20 20 B/P 134/73 Pulse Ox 94 O2 Delivery Room Air Room Air Room Air Room Air 12/27/16 12/28/16 12/28/16 12/28/16 23:01 01:36 02:06 03:48 Temp 99.0 100.1 99.0 100.1 Pulse 89 85 Resp 18 20 20 18 B/P 125/61 139/82 Pulse Ox 95 94 O2 Delivery Room Air Room Air Room Air Room Air 12/28/16 12/28/16 12/28/16 12/28/16 04:32 05:44 07:00 08:00 Temp 99.1 99.1 Pulse 83 Resp 20 20 20 B/P 130/76 Pulse Ox 96 O2 Delivery Room Air Room Air Room Air Room Air 12/28/16 12/28/16 12/28/16 08:26 08:26 09:42 Pulse Ox 94 94 94 O2 Delivery Room Air Room Air Room Air Intake and Output 12/27/16 12/27/16 12/28/16 15:00 23:00 07:00 Intake Total 1150 ml 200 ml 1320 ml Output Total 200 ml 1075 ml Balance 1150 ml 0 ml 245 ml JESSICA MARTINEZ MD Dec 28, 2016 10:58
[2016-12-28 11:00] VITALS: BP 138/71
[2016-12-28] MEDS: MORPHINE ER 15 MG TABLET.ER PO SCH ×2 (11:00→21:17)
[2016-12-28 11:18] LABS: BASO % 0 % (0-3); EOS % 1 % (0-3); HEMATOCRIT 34.8 % (39.0-53.0); HEMOGLOBIN 12.1 g/dL (13.0-17.5); LYMPH # 2.1 x10^3/uL (1.0-4.8); LYMPH % 19 % (24-48); MEAN CORPUSCULAR HEMOGLOBIN 31 pg (25-35); MEAN CORPUSCULAR HGB CONC 35 g/dL (31-37); MEAN CORPUSCULAR VOLUME 90 fL (79-100); MONO % 9 % (0-9); NEUT % 71 % (31-73); PLATELET COUNT 213 x10^3/uL (140-400); RED BLOOD COUNT 3.89 x10^6/uL (4.30-5.70); RED CELL DISTRIBUTION WIDTH 12.9 % (11.5-14.5); WHITE BLOOD COUNT 11.2 x10^3/uL (4.0-11.0)
[2016-12-28 11:34] LABS: CALCIUM 8.9 mg/dL (8.5-10.1); CREATININE 0.9 mg/dL (0.7-1.3); POTASSIUM 3.7 mmol/L (3.5-5.1)
[2016-12-28] MEDS: VANCOMYCIN PER PHARMACY MC PRN ×2 (13:28→17:09)
[2016-12-28 15:00] VITALS: BP 120/73
[2016-12-28] MEDS: DO NOT USE 40 MG/0.4 ML DISP.SYRIN SQ SCH (16:14)
[2016-12-28] MEDS: POTASSIUM CL 20MEQ D5-0.45NACL 1,000 ML IV SCH ×2 (16:15→20:00)
[2016-12-28] MEDS: KETOROLAC 15 MG/ML VIAL. IV PRN (18:13)
[2016-12-28 19:57] VITALS: BP 102/54
[2016-12-28] MEDS: ONDANSETRON PF 4 MG/2 ML VIAL. IV PRN (21:35)
[2016-12-28 23:34] VITALS: BP 163/63
[2016-12-29] MEDS: OXYCODONE/APAP 7.5/325 TABLET. PO PRN ×4 (00:56→22:10)
[2016-12-29] MEDS: KETOROLAC 15 MG/ML VIAL. IV PRN ×3 (00:57→21:04)
[2016-12-29] MEDS: VANCOMYCIN 1.5 GM in IV NORMAL SALINE 500ML BAG 500 ML IV SCH ×3 (00:58→16:09)
[2016-12-29] MEDS: FLURBIPROFEN 0.03% OD PRN ×2 (02:56→13:51)
[2016-12-29 03:08] VITALS: BP 140/72
[2016-12-29] MEDS: PROCHLORPERAZINE 10 MG/2 ML VIAL. IV PRN (03:21)
[2016-12-29] MEDS: HYDROMORPHONE 2 MG/ML VIAL. IV PRN ×3 (03:22→16:10)
[2016-12-29] MEDS ORDERED: PROMETHAZINE 12.5 MG in IV NORMAL SALINE 50ML 50 ML IV PRN (05:00)
[2016-12-29] MEDS: MEROPENEM 500 MG in IV NORMAL SALINE 50ML 50 ML IV SCH ×3 (05:13→22:03)
[2016-12-29] MEDS: OXYCODONE IR 5 MG TABLET. PO PRN ×4 (05:24→22:09)
[2016-12-29] MEDS: DIPHENHYDRAMINE HCL 25 MG CAPSULE PO PRN (05:24)
[2016-12-29] MEDS: FENTANYL PF 100 MCG/2 ML VIAL. IV PRN ×2 (05:38→19:53)
[2016-12-29] MEDS: CLINDAMYCIN 600MG PREMIX 50 ML IV SCH ×3 (05:47→21:07)
[2016-12-29] MEDS: ONDANSETRON PF 4 MG/2 ML VIAL. IV PRN (05:47)
[2016-12-29 06:00] LABS: BASO # 0.1 x10^3/uL (0.0-0.2); BASO % 1 % (0-3); EOS % 3 % (0-3); HEMATOCRIT 33.1 % (39.0-53.0); HEMOGLOBIN 11.5 g/dL (13.0-17.5); LYMPH # 1.8 x10^3/uL (1.0-4.8); LYMPH % 23 % (24-48); MEAN CORPUSCULAR HEMOGLOBIN 32 pg (25-35); MEAN CORPUSCULAR HGB CONC 35 g/dL (31-37); MEAN CORPUSCULAR VOLUME 90 fL (79-100); MONO % 9 % (0-9); NEUT % 64 % (31-73); PLATELET COUNT 199 x10^3/uL (140-400); RED BLOOD COUNT 3.66 x10^6/uL (4.30-5.70); RED CELL DISTRIBUTION WIDTH 12.6 % (11.5-14.5); WHITE BLOOD COUNT 8.1 x10^3/uL (4.0-11.0)
[2016-12-29] MEDS: POTASSIUM CL 20MEQ D5-0.45NACL 1,000 ML IV SCH ×2 (06:00→13:54)
[2016-12-29 06:25] LABS: ALBUMIN 3.2 g/dL (3.4-5.0); ALBUMIN/GLOBULIN RATIO 0.7 (1.0-1.7); CALCIUM 8.6 mg/dL (8.5-10.1); CREATININE 0.9 mg/dL (0.7-1.3); POTASSIUM 3.6 mmol/L (3.5-5.1); TOTAL BILIRUBIN 0.4 mg/dL (0.2-1.0); TOTAL PROTEIN 7.6 g/dL (6.4-8.2)
[2016-12-29 07:00] VITALS: BP 122/69
[2016-12-29] MEDS: TAMSULOSIN 0.4 MG CAP.ER.24H. PO SCH ×2 (08:21→21:05)
[2016-12-29] MEDS: MORPHINE ER 15 MG TABLET.ER PO SCH ×2 (08:21→21:04)
[2016-12-29] MEDS: POLYETHYLENE GLYCOL 3350 17 GM PACKET. PO SCH (08:22)
[2016-12-29 11:00] VITALS: BP 125/81
[2016-12-29] MEDS: VANCOMYCIN PER PHARMACY MC PRN (12:45)
--- NOTE | 2016-12-29 12:55 | PDOC ---
Infectious Disease Note Subjective Subjective c/o subjective fevers, aches and sweats Feels swelling is worse, extending down to anterior neck area and to other side around left eye Vision right eye somewhat hazy able to open mouth, but hurts to do so ROS ROS CV: Denies chest pain RESP: Denies shortness of air, cough GI: Denies n/v/d NEURO: Denies confusion, dizziness Vital Sign Vital Signs Vital Signs Date Time Temp Pulse Resp B/P Pulse Ox O2 Delivery O2 Flow Rate FiO2 12/29/16 11:08 Room Air 12/29/16 11:00 98.2 93 18 125/81 97 98.2 Physical Exam PHYSICAL EXAM GENERAL: Propped up in bed, calm, NAD HEENT: Periorbital redness and swelling. 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 Multiple tattoos IV: ok Labs Lab Laboratory Tests Test 12/28/16 15:45 12/29/16 05:30 Vancomycin Level Trough 13.5mcg/mL (10.0-20.0) Vancomycin Last Dose Date 12/28/16 Vancomycin Last Dose Time 0800 White Blood Count 8.1x10^3/uL (4.0-11.0) Red Blood Count 3.66x10^6/uL (4.30-5.70) Hemoglobin 11.5g/dL (13.0-17.5) Hematocrit 33.1% (39.0-53.0) Mean Corpuscular Volume 90fL (79-100) Mean Corpuscular Hemoglobin 32pg (25-35) Mean Corpuscular Hemoglobin Concent 35g/dL (31-37) Red Cell Distribution Width 12.6% (11.5-14.5) Platelet Count 199x10^3/uL (140-400) Neutrophils (%) (Auto) 64% (31-73) Lymphocytes (%) (Auto) 23% (24-48) Monocytes (%) (Auto) 9% (0-9) Eosinophils (%) (Auto) 3% (0-3) Basophils (%) (Auto) 1% (0-3) Neutrophils # (Auto) 5.2x10^3uL (1.8-7.7) Lymphocytes # (Auto) 1.8x10^3/uL (1.0-4.8) Monocytes # (Auto) 0.7x10^3/uL (0.0-1.1) Eosinophils # (Auto) 0.2x10^3/uL (0.0-0.7) Basophils # (Auto) 0.1x10^3/uL (0.0-0.2) Sodium Level 141mmol/L (136-145) Potassium Level 3.6mmol/L (3.5-5.1) Chloride Level 105mmol/L (98-107) Carbon Dioxide Level 26mmol/L (21-32) Anion Gap 10 (6-14) Blood Urea Nitrogen 8mg/dL (8-26) Creatinine 0.9mg/dL (0.7-1.3) Estimated GFR (Cockcroft-Gault) 93.0 BUN/Creatinine Ratio 9 (6-20) Glucose Level 128mg/dL (70-99) Calcium Level 8.6mg/dL (8.5-10.1) Total Bilirubin 0.4mg/dL (0.2-1.0) Aspartate Amino Transf (AST/SGOT) 28U/L (15-37) Alanine Aminotransferase (ALT/SGPT) 23U/L (16-63) Alkaline Phosphatase 59U/L (46-116) Total Protein 7.6g/dL (6.4-8.2) Albumin 3.2g/dL (3.4-5.0) Albumin/Globulin Ratio 0.7 (1.0-1.7) Maxillofacial CT with contrast, 12/27/2016: History: Right periorbital cellulitis Multidetector CT imaging was performed following an IV bolus injection of iodinated contrast material. Multiplanar reconstructions were produced. There is extensive subcutaneous edema over the right cheek and right eye extending over the right zygoma and right forehead. There is a small focal fluid collection along the inferolateral aspect of the right eye anteriorly as best seen on coronal image 8 of series #5, and axial image 44 of series #2. On the coronal images this measures approximately 22 x 13 mm. The globe itself shows no intrinsic abnormality. The retroglobal soft tissues including the optic nerve and extraocular musculature are unremarkable. There is mild mucosal thickening in the right ethmoid and frontal sinuses. The other paranasal sinuses are clear. The left orbital region is unremarkable. No underlying bony abnormality is detected. IMPRESSION: 1. Extensive right periorbital inflammation as described above with a small focal fluid collection inferolaterally raising the possibility of developing abscess. 2. Mild inflammatory changes in the right ethmoid and frontal sinuses. Micro BLOOD CULTURE Preliminary NO GROWTH AFTER 2 DAYS Objective Assessment Preseptal orbital cellulitis right Hep C Fever Leukocytosis, better ? Orbital abscess Plan Plan of Care vanc and Meropenem clinda for total 3 days Vanc [id number] antiinflammatory Ophth input pending May need re-imaging Patient seen and examined. Chart reviewed in detail. 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 Fully covered abx balbuena. Agree with above plan Await results of repeat CT Add CRP to am labs LAYNE PINEDA APRN Dec 29, 2016 12:55 MARTINEZ WARE MD Dec 29, 2016 15:48
--- NOTE | 2016-12-29 13:37 | PDOC ---
PROGRESS NOTES Chief Complaint Chief Complaint Facial cellulitis periorbital, Hep C, SIRS POA< no sepsis Multiple tatooes Overweight with mild PCM History of Present Illness History of Present Illness NO fevers, no white ct Erythema and swelling on R side seems to be getting better based on sharpie markings, but now has moved to the left side of his face Some fuzzy vision on R eye, but able to open eyes more now On IV clinda and meropenem SOme difficulty swallow GI soft but claims "he can manage" PLAN: Start NSAID TID scheduled COnt GI soft COnt clinda and meropenem Dw pt and RN Vitals Vitals Vital Signs Date Time Temp Pulse Resp B/P Pulse Ox O2 Delivery O2 Flow Rate FiO2 12/29/16 11:08 Room Air 12/29/16 11:00 98.2 93 18 125/81 97 98.2 Physical Exam General: Alert, Oriented X3, Cooperative, No acute distress Heart: Regular rate, No murmurs Abdomen: Normal bowel sounds, Soft Extremities: No clubbing, No edema Skin: Other (marked facial cellilits with swelling to periorbit, eye swollen shut) Labs LABS Laboratory Tests Test 12/28/16 15:45 12/29/16 05:30 Vancomycin Level Trough 13.5mcg/mL (10.0-20.0) Vancomycin Last Dose Date 12/28/16 Vancomycin Last Dose Time 0800 White Blood Count 8.1x10^3/uL (4.0-11.0) Red Blood Count 3.66x10^6/uL (4.30-5.70) Hemoglobin 11.5g/dL (13.0-17.5) Hematocrit 33.1% (39.0-53.0) Mean Corpuscular Volume 90fL (79-100) Mean Corpuscular Hemoglobin 32pg (25-35) Mean Corpuscular Hemoglobin Concent 35g/dL (31-37) Red Cell Distribution Width 12.6% (11.5-14.5) Platelet Count 199x10^3/uL (140-400) Neutrophils (%) (Auto) 64% (31-73) Lymphocytes (%) (Auto) 23% (24-48) Monocytes (%) (Auto) 9% (0-9) Eosinophils (%) (Auto) 3% (0-3) Basophils (%) (Auto) 1% (0-3) Neutrophils # (Auto) 5.2x10^3uL (1.8-7.7) Lymphocytes # (Auto) 1.8x10^3/uL (1.0-4.8) Monocytes # (Auto) 0.7x10^3/uL (0.0-1.1) Eosinophils # (Auto) 0.2x10^3/uL (0.0-0.7) Basophils # (Auto) 0.1x10^3/uL (0.0-0.2) Sodium Level 141mmol/L (136-145) Potassium Level 3.6mmol/L (3.5-5.1) Chloride Level 105mmol/L (98-107) Carbon Dioxide Level 26mmol/L (21-32) Anion Gap 10 (6-14) Blood Urea Nitrogen 8mg/dL (8-26) Creatinine 0.9mg/dL (0.7-1.3) Estimated GFR (Cockcroft-Gault) 93.0 BUN/Creatinine Ratio 9 (6-20) Glucose Level 128mg/dL (70-99) Calcium Level 8.6mg/dL (8.5-10.1) Total Bilirubin 0.4mg/dL (0.2-1.0) Aspartate Amino Transf (AST/SGOT) 28U/L (15-37) Alanine Aminotransferase (ALT/SGPT) 23U/L (16-63) Alkaline Phosphatase 59U/L (46-116) Total Protein 7.6g/dL (6.4-8.2) Albumin 3.2g/dL (3.4-5.0) Albumin/Globulin Ratio 0.7 (1.0-1.7) Review of Systems Review of Systems dysphagia, blurry vision, no cp, no fevers,. no n/v/d Assessment and Plan Assessmemt and Plan Problems Medical Problems: (1) Cellulitis Status: Acute (2) Preseptal cellulitis of right eye Status: Acute Problems: Comment Review of Relevant I have reviewed the following items [place] (where applicable) has been applied. Labs Laboratory Tests Test 12/27/16 19:00 12/28/16 10:50 12/28/16 15:45 12/29/16 05:30 Nasal Screen MRSA (PCR) Negative (Negative) White Blood Count 11.2x10^3/uL (4.0-11.0) 8.1x10^3/uL (4.0-11.0) Red Blood Count 3.89x10^6/uL (4.30-5.70) 3.66x10^6/uL (4.30-5.70) Hemoglobin 12.1g/dL (13.0-17.5) 11.5g/dL (13.0-17.5) Hematocrit 34.8% (39.0-53.0) 33.1% (39.0-53.0) Mean Corpuscular Volume 90fL (79-100) 90fL (79-100) Mean Corpuscular Hemoglobin 31pg (25-35) 32pg (25-35) Mean Corpuscular Hemoglobin Concent 35g/dL (31-37) 35g/dL (31-37) Red Cell Distribution Width 12.9% (11.5-14.5) 12.6% (11.5-14.5) Platelet Count 213x10^3/uL (140-400) 199x10^3/uL (140-400) Neutrophils (%) (Auto) 71% (31-73) 64% (31-73) Lymphocytes (%) (Auto) 19% (24-48) 23% (24-48) Monocytes (%) (Auto) 9% (0-9) 9% (0-9) Eosinophils (%) (Auto) 1% (0-3) 3% (0-3) Basophils (%) (Auto) 0% (0-3) 1% (0-3) Neutrophils # (Auto) 8.0x10^3uL (1.8-7.7) 5.2x10^3uL (1.8-7.7) Lymphocytes # (Auto) 2.1x10^3/uL (1.0-4.8) 1.8x10^3/uL (1.0-4.8) Monocytes # (Auto) 1.0x10^3/uL (0.0-1.1) 0.7x10^3/uL (0.0-1.1) Eosinophils # (Auto) 0.1x10^3/uL (0.0-0.7) 0.2x10^3/uL (0.0-0.7) Basophils # (Auto) 0.0x10^3/uL (0.0-0.2) 0.1x10^3/uL (0.0-0.2) Sodium Level 138mmol/L (136-145) 141mmol/L (136-145) Potassium Level 3.7mmol/L (3.5-5.1) 3.6mmol/L (3.5-5.1) Chloride Level 102mmol/L (98-107) 105mmol/L (98-107) Carbon Dioxide Level 25mmol/L (21-32) 26mmol/L (21-32) Anion Gap 11 (6-14) 10 (6-14) Blood Urea Nitrogen 7mg/dL (8-26) 8mg/dL (8-26) Creatinine 0.9mg/dL (0.7-1.3) 0.9mg/dL (0.7-1.3) Estimated GFR (Cockcroft-Gault) 93.0 93.0 Glucose Level 99mg/dL (70-99) 128mg/dL (70-99) Calcium Level 8.9mg/dL (8.5-10.1) 8.6mg/dL (8.5-10.1) Vancomycin Level Trough 13.5mcg/mL (10.0-20.0) Vancomycin Last Dose Date 12/28/16 Vancomycin Last Dose Time 0800 BUN/Creatinine Ratio 9 (6-20) Total Bilirubin 0.4mg/dL (0.2-1.0) Aspartate Amino Transf (AST/SGOT) 28U/L (15-37) Alanine Aminotransferase (ALT/SGPT) 23U/L (16-63) Alkaline Phosphatase 59U/L (46-116) Total Protein 7.6g/dL (6.4-8.2) Albumin 3.2g/dL (3.4-5.0) Albumin/Globulin Ratio 0.7 (1.0-1.7) Laboratory Tests Test 12/28/16 15:45 12/29/16 05:30 Vancomycin Level Trough 13.5mcg/mL (10.0-20.0) Vancomycin Last Dose Date 12/28/16 Vancomycin Last Dose Time 0800 White Blood Count 8.1x10^3/uL (4.0-11.0) Red Blood Count 3.66x10^6/uL (4.30-5.70) Hemoglobin 11.5g/dL (13.0-17.5) Hematocrit 33.1% (39.0-53.0) Mean Corpuscular Volume 90fL (79-100) Mean Corpuscular Hemoglobin 32pg (25-35) Mean Corpuscular Hemoglobin Concent 35g/dL (31-37) Red Cell Distribution Width 12.6% (11.5-14.5) Platelet Count 199x10^3/uL (140-400) Neutrophils (%) (Auto) 64% (31-73) Lymphocytes (%) (Auto) 23% (24-48) Monocytes (%) (Auto) 9% (0-9) Eosinophils (%) (Auto) 3% (0-3) Basophils (%) (Auto) 1% (0-3) Neutrophils # (Auto) 5.2x10^3uL (1.8-7.7) Lymphocytes # (Auto) 1.8x10^3/uL (1.0-4.8) Monocytes # (Auto) 0.7x10^3/uL (0.0-1.1) Eosinophils # (Auto) 0.2x10^3/uL (0.0-0.7) Basophils # (Auto) 0.1x10^3/uL (0.0-0.2) Sodium Level 141mmol/L (136-145) Potassium Level 3.6mmol/L (3.5-5.1) Chloride Level 105mmol/L (98-107) Carbon Dioxide Level 26mmol/L (21-32) Anion Gap 10 (6-14) Blood Urea Nitrogen 8mg/dL (8-26) Creatinine 0.9mg/dL (0.7-1.3) Estimated GFR (Cockcroft-Gault) 93.0 BUN/Creatinine Ratio 9 (6-20) Glucose Level 128mg/dL (70-99) Calcium Level 8.6mg/dL (8.5-10.1) Total Bilirubin 0.4mg/dL (0.2-1.0) Aspartate Amino Transf (AST/SGOT) 28U/L (15-37) Alanine Aminotransferase (ALT/SGPT) 23U/L (16-63) Alkaline Phosphatase 59U/L (46-116) Total Protein 7.6g/dL (6.4-8.2) Albumin 3.2g/dL (3.4-5.0) Albumin/Globulin Ratio 0.7 (1.0-1.7) Microbiology 12/27/16 Blood Culture - Preliminary, Resulted NO GROWTH AFTER 2 DAYS Medications Current Medications Sodium Chloride (Iv Sodium Chloride 0.9% 1000ml Bag) 1,000 ml @ 1,000 mls/hr Q1H IV Last administered on 12/27/16 12:19; Start 12/27/16 at 12:00; Stop at 12:59; Status DC Sodium Chloride (Normal Saline Flush) 10 ml QSHIFT PRN IV AFTER MEDS AND BLOOD DRAWS; Start 12/27/16 at 12:00 Fentanyl Citrate (Fentanyl 2ml Vial) 50 mcg 1X ONCE IV Last administered on 12:32; Start 12/27/16 at 12:00; Stop 12/27/16 at 12:07; Status DC Levofloxacin/ Dextrose 1 each 1 each PRN DAILY PRN MC SEE COMMENTS; Start 12/27 at 12:00; Stop 12/27/16 at 13:07; Status DC Levofloxacin/ Dextrose (LEVAQUIN 500mg PREMIX) 100 ml @ 100 mls/hr 1X ONCE IV Last administered on 12/27/16 12:34; Start 12/27/16 at 12:15; Stop 12/27/16 at 13:14; Status DC Vancomycin HCl 1 each 1 each PRN DAILY PRN MC SEE COMMENTS Last administered on 12/29/16 12:45; Start 12/27/16 at 13:15 Meropenem 500 mg/ Sodium Chloride 50 ml @ 100 mls/hr Q8HRS IV Last administered on 12/29/16 05:13; Start 12/27/16 at 22:00 Clindamycin Phosphate 50 ml @ 100 mls/hr Q8HRS IV Last administered on 05:47; Start 12/27/16 at 22:00 Vancomycin HCl 2 gm/Sodium Chloride 500 ml @ 250 mls/hr 1X ONCE IV Last administered on 12/27/16 16:11; Start 12/27/16 at 14:00; Stop 12/27/16 at 15:59 ; Status DC Clindamycin Phosphate 50 ml @ 100 mls/hr 1X ONCE IV Last administered on 12/27 13:44; Start 12/27/16 at 14:00; Stop 12/27/16 at 14:29; Status DC Meropenem/Sodium Chloride (Merrem/Iv Sodium Chloride 0.9% 50ml) 50 ml @ 100 mls /hr 1X ONCE IV Last administered on 12/27/16 14:37; Start 12/27/16 at 14:00; Stop 12/27/16 at 14:29; Status DC Iohexol (Omnipaque 300 Mg/ml) 75 ml 1X ONCE IV Last administered on 12/27/16 14:04; Start 12/27/16 at 13:30; Stop 12/27/16 at 13:33; Status DC Info (Do NOT chart on this entry -- for MONITORING) 1 each PRN DAILY PRN MC SEE COMMENTS; Start 12/27/16 at 13:45; Stop 12/29/16 at 13:44 Morphine Sulfate 5 mg 1X ONCE IV Last administered on 12/27/16 13:54; Start 12/27/16 at 13:45; Stop 12/27/16 at 13:46; Status DC Oxycodone/ Acetaminophen (Percocet 7.5/ 325) 1 tab PRN Q4HRS PRN PO PAIN Last administered on 12/29/16 08:21; Start 12/27/16 at 15:00 Fentanyl Citrate (Fentanyl 2ml Vial) 75 mcg PRN Q2HR PRN IV PAIN Last administered on 12/28/16 08:26; Start 12/27/16 at 15:00; Stop 12/28/16 at 09:21 ; Status DC Diphenhydramine HCl (Benadryl) 50 mg 1X ONCE IVP Last administered on 15:11; Start 12/27/16 at 15:00; Stop 12/27/16 at 15:01; Status DC Diphenhydramine HCl (Benadryl) 50 mg PRN Q6HRS PRN PO ITCHING Last administered on 12/29/16 05:24; Start 12/27/16 at 15:00 Oxycodone HCl (Roxicodone) 10 mg PRN Q6HRS PRN PO PAIN Last administered on 08:26; Start 12/27/16 at 15:00; Stop 12/28/16 at 09:21; Status DC Enoxaparin Sodium (Lovenox Per Pharmacy Prophylaxis Dosing) 1 each PRN DAILY PRN MC SEE COMMENTS; Start 12/27/16 at 15:00 Polyethylene Glycol (miraLAX PACKET) 17 gm DAILY PO ; Start 12/27/16 at 15:00 Docusate Sodium (Colace) 100 mg PRN DAILY PRN PO CONSTIPATION; Start 12/27/16 at 15:00 Potassium Chloride (Klor-Con) 20 meq 1X ONCE PO Last administered on 15:11; Start 12/27/16 at 15:00; Stop 12/27/16 at 15:01; Status DC Enoxaparin Sodium (Lovenox 40mg Syringe) 40 mg Q24H SQ Last administered on 16:14; Start 12/27/16 at 16:00 Tamsulosin HCl 0.4 mg 0.4 mg BID PO Last administered on 12/29/16 08:21; Start 12/27/16 at 21:00 Vancomycin HCl/ Sodium Chloride (Iv Sodium Chloride 0.9% 500ml Bag) 500 ml @ 250 mls/hr Q8H IV Last administered on 12/29/16 08:22; Start 12/28/16 at 00:00 Vancomycin HCl 1 each 1X ONCE MC ; Start 12/28/16 at 15:30; Stop 12/28/16 at 15 :31; Status DC Fentanyl Citrate (Fentanyl 2ml Vial) 100 mcg PRN Q2HR PRN IV PAIN Last administered on 12/29/16 05:38; Start 12/28/16 at 09:30 Oxycodone HCl (Roxicodone) 10 mg PRN Q4HRS PRN PO PAIN Last administered on 05:24; Start 12/28/16 at 13:32 Morphine Sulfate (Ms Contin) 30 mg 1X ONCE PO Last administered on 12/28/16 09:42; Start 12/28/16 at 09:30; Stop 12/28/16 at 09:31; Status DC Ketorolac Tromethamine (Toradol) 30 mg 1X ONCE IV Last administered on 10:36; Start 12/28/16 at 10:00; Stop 12/28/16 at 10:14; Status DC Ketorolac Tromethamine 15 mg 15 mg PRN Q6HRS PRN IV PAIN Last administered on 11:55; Start 12/28/16 at 10:00; Stop 01/02/17 at 09:59 Potassium Chloride/Dextrose/ Sod Cl (KCl 20 Meq In D5W-1/2 NS) 1,000 ml @ 100 mls/hr Q10H IV Last administered on 12/28/16 16:15; Start 12/28/16 at 10:00 Morphine Sulfate (Ms Contin) 15 mg BID PO Last administered on 12/29/16 08:21 ; Start 12/28/16 at 11:00 Ondansetron HCl (Zofran) 4 mg PRN Q6HRS PRN IV NAUSEA/VOMITING Last administered on 12/29/16 05:47; Start 12/28/16 at 11:45 Prochlorperazine Edisylate (Compazine) 10 mg PRN Q6HRS PRN IV NAUSEA/VOMITING Last administered on 12/29/16 03:21; Start 12/29/16 at 02:15 Flurbiprofen Sodium (Ocufen) 1 drop PRN QID PRN OD PAIN Last administered on 02:56; Start 12/29/16 at 02:15 Hydromorphone HCl 1 mg 1 mg PRN Q4HRS PRN IV PAIN Last administered on 10:14; Start 12/29/16 at 02:15 Promethazine HCl/ Sodium Chloride (Phenergan/Iv Sodium Chloride 0.9% 50ml) 50.5 ml @ 151.5 mls/ hr PRN Q6HRS PRN IV NAUSEA/VOMITING; Start 12/29/16 at 05:00 Vitals/I & O Vital Sign - Last 24 Hours 12/28/16 12/28/16 12/28/16 12/28/16 13:40 14:48 15:00 16:14 Temp 98.2 98.2 Pulse 89 Resp 16 B/P 120/73 Pulse Ox 96 96 96 96 O2 Delivery Room Air Room Air Room Air Room Air 12/28/16 12/28/16 12/28/16 12/28/16 17:02 17:15 17:37 18:13 Pulse Ox 96 96 96 96 O2 Delivery Room Air Room Air 12/28/16 12/28/16 12/28/16 12/28/16 19:15 19:57 20:00 21:17 Temp 98.3 98.3 Pulse 76 Resp 18 16 B/P 102/54 Pulse Ox 96 95 O2 Delivery Room Air Room Air Room Air 12/28/16 12/28/16 12/28/16 12/29/16 22:34 22:48 23:34 00:56 Temp 98.4 98.4 Pulse 74 Resp 16 16 18 16 B/P 163/63 Pulse Ox 97 O2 Delivery Room Air Room Air Room Air Room Air 12/29/16 12/29/16 12/29/16 12/29/16 01:17 02:00 03:08 03:22 Temp 98.3 98.3 Pulse 74 Resp 16 16 18 16 B/P 140/72 Pulse Ox 96 O2 Delivery Room Air Room Air Room Air 12/29/16 12/29/16 12/29/16 12/29/16 04:00 05:24 05:38 06:11 Resp 16 16 16 16 O2 Delivery Room Air Room Air Room Air 12/29/16 12/29/16 12/29/16 12/29/16 06:30 07:00 07:45 08:21 Temp 98.1 98.1 Pulse 88 Resp 16 18 B/P 122/69 Pulse Ox 95 O2 Delivery Room Air Room Air Room Air Room Air 12/29/16 12/29/16 12/29/16 12/29/16 08:21 09:28 10:14 11:00 Temp 98.2 98.2 Pulse 93 Resp 18 B/P 125/81 Pulse Ox 97 O2 Delivery Room Air Room Air Room Air Room Air 12/29/16 11:08 O2 Delivery Room Air Intake and Output 12/28/16 12/28/16 12/29/16 15:00 23:00 07:00 Intake Total 700 ml 2412 ml Output Total 200 ml 1625 ml 1250 ml Balance -200 ml -925 ml 1162 ml CHEN CAMPUZANO MD Dec 29, 2016 13:37
[2016-12-29] MEDS: IBUPROFEN 600 MG TABLET. PO SCH ×2 (13:51→21:00)
[2016-12-29 15:00] VITALS: BP 121/70
[2016-12-29] MEDS ORDERED: IOHEXOL 300 MG/ML 75 ML VIAL IV ONE (15:30)
[2016-12-29] MEDS ORDERED: CONTRAST GIVEN MC PRN (15:30)
[2016-12-29] MEDS: DO NOT USE 40 MG/0.4 ML DISP.SYRIN SQ SCH (16:13)
[2016-12-29 19:00] VITALS: BP 147/73
[2016-12-29 23:02] VITALS: BP 137/67
[2016-12-29 23:03] LABS: BILIRUBIN,URINE NEGATIVE (NEG); GLUCOSE,URINE NEGATIVE (NEG); NITRITE,URINE NEGATIVE (NEG); PH,URINE 6.5; PROTEIN,URINE NEGATIVE (NEG-TRACE); UROBILINOGEN,URINE 0.2 mg/dL (0.2 mg/dL)
[2016-12-29 23:05] LABS: BACTERIA,URINE 0 /HPF (0-FEW); RBC,URINE OCC /HPF (0-2); SQUAMOUS EPITHELIAL CELL,UR OCC /LPF; WBC,URINE 0 /HPF (0-4)
[2016-12-30] MEDS: FENTANYL PF 100 MCG/2 ML VIAL. IV PRN ×3 (00:04→20:05)
[2016-12-30] MEDS: VANCOMYCIN 1.5 GM in IV NORMAL SALINE 500ML BAG 500 ML IV SCH ×3 (00:05→16:47)
[2016-12-30] MEDS: PROCHLORPERAZINE 10 MG/2 ML VIAL. IV PRN (01:07)
[2016-12-30 03:07] VITALS: BP 138/82
[2016-12-30] MEDS: POTASSIUM CL 20MEQ D5-0.45NACL 1,000 ML IV SCH ×3 (04:10→21:30)
[2016-12-30] MEDS: CLINDAMYCIN 600MG PREMIX 50 ML IV SCH ×3 (06:04→21:31)
[2016-12-30] MEDS: OXYCODONE/APAP 7.5/325 TABLET. PO PRN ×4 (06:05→21:31)
[2016-12-30] MEDS: OXYCODONE IR 5 MG TABLET. PO PRN ×4 (06:05→21:31)
[2016-12-30 07:00] VITALS: BP 131/76
[2016-12-30] MEDS: MEROPENEM 500 MG in IV NORMAL SALINE 50ML 50 ML IV SCH ×3 (07:09→22:31)
[2016-12-30] MEDS: POLYETHYLENE GLYCOL 3350 17 GM PACKET. PO SCH (07:51)
[2016-12-30] MEDS: FLURBIPROFEN 0.03% OD PRN ×2 (08:08→13:13)
[2016-12-30] MEDS: KETOROLAC 15 MG/ML VIAL. IV PRN (08:09)
[2016-12-30] MEDS: MORPHINE ER 15 MG TABLET.ER PO SCH ×2 (08:10→20:06)
[2016-12-30] MEDS: ONDANSETRON PF 4 MG/2 ML VIAL. IV PRN ×2 (08:13→18:02)
[2016-12-30] MEDS: IBUPROFEN 600 MG TABLET. PO SCH ×3 (08:14→20:06)
[2016-12-30] MEDS: TAMSULOSIN 0.4 MG CAP.ER.24H. PO SCH ×2 (08:16→20:06)
[2016-12-30] MEDS: DIPHENHYDRAMINE HCL 25 MG CAPSULE PO PRN (08:16)
--- NOTE | 2016-12-30 10:11 | RAD ---
Indication swelling. Follow-up. Assess for underlying abscess. Contrast imaging through the maxillofacial structures was performed. 70 cc of Omnipaque 300 was administered. Images were reformatted in the coronal and sagittal planes. Comparison is made to a study 2 days ago The visualized brain appears unremarkable. The lung apices appear clear. Some minimal opacification of right ethmoid air cells is noted similar to the previous exam. Soft tissue swelling along the right cheek, orbit and forehead persists but is improved. No underlying abscess is seen and specifically no definite periorbital abscess is seen. Mild adenopathy in the neck is noted similar to the previous exam and likely reactive. IMPRESSION:: Persistent soft tissue swelling but improved. No discrete underlying abscess seen PQRS Compliance Statement: One or more of the following individualized dose reduction techniques were utilized for this examination: 1. Automated exposure control 2. Adjustment of the mA and/or kV according to patient size 3. Use of iterative reconstruction technique
[2016-12-30] MEDS: VANCOMYCIN PER PHARMACY MC PRN (10:54)
[2016-12-30 11:00] VITALS: BP 123/84
--- NOTE | 2016-12-30 11:20 | PDOC ---
Infectious Disease Note Subjective Subjective Feeling little better, still hurts Vision right eye somewhat hazy still with pain with movement horizontally able to open mouth, but hurts to do so in cheek area Threw up earlier Some urinary retention ROS ROS GEN: Denies fevers, chills, sweats HEENT: Denies sore throat CV: Denies chest pain RESP: Denies shortness of air, cough GI: Denies n/v/d Vital Sign Vital Signs Vital Signs Date Time Temp Pulse Resp B/P Pulse Ox O2 Delivery O2 Flow Rate FiO2 12/30/16 08:10 98 Room Air 12/30/16 07:00 97.6 53 20 131/76 97.6 Physical Exam PHYSICAL EXAM GENERAL: Propped up in bed, calm, NAD HEENT: EOMI. Less periorbital redness and swelling, though mild redness now on cheek and bridge of nose, no increase swelling. tender Swelling near left eye better NECK: Supple, no adenopathy appreciated LUNGS: Clear HEART: S1S2, no gallop, no murmur ABD: Soft, NT EXT: No edema, no cyanosis TAX DIRECTOR: Alert, 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, no focal neurologic deficit SKIN: No rash. Multiple tattoos IV: ok Labs Lab Laboratory Tests Test 12/29/16 15:30 12/29/16 22:00 12/30/16 05:25 Erythrocyte Sedimentation Rate 45 (0-15) Urine Collection Type Unknown Urine Color Yellow Urine Clarity Clear Urine pH 6.5 Urine Specific [employer] 1.010 Urine Protein Negativemg/dL (NEG-TRACE) Urine Glucose (UA) Negativemg/dL (NEG) Urine Ketones (Stick) Negativemg/dL (NEG) Urine Blood Negative (NEG) Urine Nitrite Negative (NEG) Urine Bilirubin Negative (NEG) Urine Urobilinogen Dipstick 0.2mg/dL (0.2 mg/dL) Urine Leukocyte Esterase Negative (NEG) Urine RBC Occ/HPF (0-2) Urine WBC 0/HPF (0-4) Urine Squamous Epithelial Cells Occ/LPF Urine Bacteria 0/HPF (0-FEW) C-Reactive Protein, Quantitative 54.2mg/L (0-3.3) Indication swelling. Follow-up. Assess for underlying abscess. Contrast imaging through the maxillofacial structures was performed. 70 cc of Omnipaque 300 was administered. Images were reformatted in the coronal and sagittal planes. Comparison is made to a study 2 days ago The visualized brain appears unremarkable. The lung apices appear clear. Some minimal opacification of right ethmoid air cells is noted similar to the previous exam. Soft tissue swelling along the right cheek, orbit and forehead persists but is improved. No underlying abscess is seen and specifically no definite periorbital abscess is seen. Mild adenopathy in the neck is noted similar to the previous exam and likely reactive. IMPRESSION:: Persistent soft tissue swelling but improved. No discrete underlying abscess seen Micro BLOOD CULTURE Preliminary NO GROWTH AFTER 2 DAYS Objective Assessment Preseptal orbital cellulitis right Hep C Fever Leukocytosis, better ? Orbital abscess Urinary retention. UA negative Plan Plan of Care vanc and Meropenem clinda for total 3 days Vanc [id number] Ophth input pending Urology consulted per primary Patient seen and examined. Chart reviewed. Case discussed with EQUIPMENT COORDINATOR. Agree with above plan. LAYNE PINEDA APRN Dec 30, 2016 11:20 MARTINEZ WARE MD Dec 30, 2016 16:27
--- NOTE | 2016-12-30 12:24 | PDOC ---
PROGRESS NOTES Chief Complaint Chief Complaint Facial cellulitis periorbital, Hep C, SIRS POA< no sepsis Multiple tatooes Overweight with mild PCM History of Present Illness History of Present Illness Swelling and erythema even better today! BUt pt thinks otherwise HE is able to open his eyes more Interval CT shows improvement and no evidence of fluid collection anymore ESR only 40s NO fevers Pt had significant emesis though today Claims still cant swallow PLAn: Supprotive meds Lidocaine SW and SW, cepastat prn TRial fo gI soft COnt antibiotics per iD If odynophagia persists, consult gI - should be getting better as images and labs are better - BUT pt claims swallowing not back to baseline dw RN at bedside Vitals Vitals Vital Signs Date Time Temp Pulse Resp B/P Pulse Ox O2 Delivery O2 Flow Rate FiO2 12/30/16 12:01 Room Air 12/30/16 11:00 97.4 60 20 123/84 96 97.4 Physical Exam General: Alert, Oriented X3, Cooperative, No acute distress Heart: Regular rate, No murmurs Abdomen: Normal bowel sounds, Soft Extremities: No clubbing, No edema Skin: Other (marked facial cellilits with swelling to periorbit, eye swollen shut) Labs LABS Laboratory Tests Test 12/29/16 15:30 12/29/16 22:00 12/30/16 05:25 Erythrocyte Sedimentation Rate 45 (0-15) Urine Collection Type Unknown Urine Color Yellow Urine Clarity Clear Urine pH 6.5 Urine Specific [place] 1.010 Urine Protein Negativemg/dL (NEG-TRACE) Urine Glucose (UA) Negativemg/dL (NEG) Urine Ketones (Stick) Negativemg/dL (NEG) Urine Blood Negative (NEG) Urine Nitrite Negative (NEG) Urine Bilirubin Negative (NEG) Urine Urobilinogen Dipstick 0.2mg/dL (0.2 mg/dL) Urine Leukocyte Esterase Negative (NEG) Urine RBC Occ/HPF (0-2) Urine WBC 0/HPF (0-4) Urine Squamous Epithelial Cells Occ/LPF Urine Bacteria 0/HPF (0-FEW) C-Reactive Protein, Quantitative 54.2mg/L (0-3.3) Review of Systems Review of Systems odynophagia, emesis, no diarrfhea, no fevres, no CP Assessment and Plan Assessmemt and Plan Problems Medical Problems: (1) Cellulitis Status: Acute (2) Preseptal cellulitis of right eye Status: Acute Problems: Comment Review of Relevant I have reviewed the following items [place] (where applicable) has been applied. Labs Laboratory Tests Test 12/28/16 15:45 12/29/16 05:30 12/29/16 15:30 12/29/16 22:00 Vancomycin Level Trough 13.5mcg/mL (10.0-20.0) Vancomycin Last Dose Date 12/28/16 Vancomycin Last Dose Time 0800 White Blood Count 8.1x10^3/uL (4.0-11.0) Red Blood Count 3.66x10^6/uL (4.30-5.70) Hemoglobin 11.5g/dL (13.0-17.5) Hematocrit 33.1% (39.0-53.0) Mean Corpuscular Volume 90fL (79-100) Mean Corpuscular Hemoglobin 32pg (25-35) Mean Corpuscular Hemoglobin Concent 35g/dL (31-37) Red Cell Distribution Width 12.6% (11.5-14.5) Platelet Count 199x10^3/uL (140-400) Neutrophils (%) (Auto) 64% (31-73) Lymphocytes (%) (Auto) 23% (24-48) Monocytes (%) (Auto) 9% (0-9) Eosinophils (%) (Auto) 3% (0-3) Basophils (%) (Auto) 1% (0-3) Neutrophils # (Auto) 5.2x10^3uL (1.8-7.7) Lymphocytes # (Auto) 1.8x10^3/uL (1.0-4.8) Monocytes # (Auto) 0.7x10^3/uL (0.0-1.1) Eosinophils # (Auto) 0.2x10^3/uL (0.0-0.7) Basophils # (Auto) 0.1x10^3/uL (0.0-0.2) Sodium Level 141mmol/L (136-145) Potassium Level 3.6mmol/L (3.5-5.1) Chloride Level 105mmol/L (98-107) Carbon Dioxide Level 26mmol/L (21-32) Anion Gap 10 (6-14) Blood Urea Nitrogen 8mg/dL (8-26) Creatinine 0.9mg/dL (0.7-1.3) Estimated GFR (Cockcroft-Gault) 93.0 BUN/Creatinine Ratio 9 (6-20) Glucose Level 128mg/dL (70-99) Calcium Level 8.6mg/dL (8.5-10.1) Total Bilirubin 0.4mg/dL (0.2-1.0) Aspartate Amino Transf (AST/SGOT) 28U/L (15-37) Alanine Aminotransferase (ALT/SGPT) 23U/L (16-63) Alkaline Phosphatase 59U/L (46-116) Total Protein 7.6g/dL (6.4-8.2) Albumin 3.2g/dL (3.4-5.0) Albumin/Globulin Ratio 0.7 (1.0-1.7) Erythrocyte Sedimentation Rate 45 (0-15) Urine Collection Type Unknown Urine Color Yellow Urine Clarity Clear Urine pH 6.5 Urine Specific [place] 1.010 Urine Protein Negativemg/dL (NEG-TRACE) Urine Glucose (UA) Negativemg/dL (NEG) Urine Ketones (Stick) Negativemg/dL (NEG) Urine Blood Negative (NEG) Urine Nitrite Negative (NEG) Urine Bilirubin Negative (NEG) Urine Urobilinogen Dipstick 0.2mg/dL (0.2 mg/dL) Urine Leukocyte Esterase Negative (NEG) Urine RBC Occ/HPF (0-2) Urine WBC 0/HPF (0-4) Urine Squamous Epithelial Cells Occ/LPF Urine Bacteria 0/HPF (0-FEW) Test 12/30/16 05:25 C-Reactive Protein, Quantitative 54.2mg/L (0-3.3) Laboratory Tests Test 12/29/16 15:30 12/29/16 22:00 12/30/16 05:25 Erythrocyte Sedimentation Rate 45 (0-15) Urine Collection Type Unknown Urine Color Yellow Urine Clarity Clear Urine pH 6.5 Urine Specific [place] 1.010 Urine Protein Negativemg/dL (NEG-TRACE) Urine Glucose (UA) Negativemg/dL (NEG) Urine Ketones (Stick) Negativemg/dL (NEG) Urine Blood Negative (NEG) Urine Nitrite Negative (NEG) Urine Bilirubin Negative (NEG) Urine Urobilinogen Dipstick 0.2mg/dL (0.2 mg/dL) Urine Leukocyte Esterase Negative (NEG) Urine RBC Occ/HPF (0-2) Urine WBC 0/HPF (0-4) Urine Squamous Epithelial Cells Occ/LPF Urine Bacteria 0/HPF (0-FEW) C-Reactive Protein, Quantitative 54.2mg/L (0-3.3) Microbiology 12/27/16 Blood Culture - Preliminary, Resulted NO GROWTH AFTER 2 DAYS Medications Current Medications Sodium Chloride (Iv Sodium Chloride 0.9% 1000ml Bag) 1,000 ml @ 1,000 mls/hr Q1H IV Last administered on 12/27/16 12:19; Start 12/27/16 at 12:00; Stop at 12:59; Status DC Sodium Chloride (Normal Saline Flush) 10 ml QSHIFT PRN IV AFTER MEDS AND BLOOD DRAWS; Start 12/27/16 at 12:00 Fentanyl Citrate (Fentanyl 2ml Vial) 50 mcg 1X ONCE IV Last administered on 12:32; Start 12/27/16 at 12:00; Stop 12/27/16 at 12:07; Status DC Levofloxacin/ Dextrose 1 each 1 each PRN DAILY PRN MC SEE COMMENTS; Start 12/27 at 12:00; Stop 12/27/16 at 13:07; Status DC Levofloxacin/ Dextrose (LEVAQUIN 500mg PREMIX) 100 ml @ 100 mls/hr 1X ONCE IV Last administered on 12/27/16 12:34; Start 12/27/16 at 12:15; Stop 12/27/16 at 13:14; Status DC Vancomycin HCl 1 each 1 each PRN DAILY PRN MC SEE COMMENTS Last administered on 12/30/16 10:54; Start 12/27/16 at 13:15 Meropenem 500 mg/ Sodium Chloride 50 ml @ 100 mls/hr Q8HRS IV Last administered on 12/30/16 07:09; Start 12/27/16 at 22:00 Clindamycin Phosphate 50 ml @ 100 mls/hr Q8HRS IV Last administered on 06:04; Start 12/27/16 at 22:00 Vancomycin HCl 2 gm/Sodium Chloride 500 ml @ 250 mls/hr 1X ONCE IV Last administered on 12/27/16 16:11; Start 12/27/16 at 14:00; Stop 12/27/16 at 15:59 ; Status DC Clindamycin Phosphate 50 ml @ 100 mls/hr 1X ONCE IV Last administered on 12/27 13:44; Start 12/27/16 at 14:00; Stop 12/27/16 at 14:29; Status DC Meropenem/Sodium Chloride (Merrem/Iv Sodium Chloride 0.9% 50ml) 50 ml @ 100 mls /hr 1X ONCE IV Last administered on 12/27/16 14:37; Start 12/27/16 at 14:00; Stop 12/27/16 at 14:29; Status DC Iohexol (Omnipaque 300 Mg/ml) 75 ml 1X ONCE IV Last administered on 12/27/16 14:04; Start 12/27/16 at 13:30; Stop 12/27/16 at 13:33; Status DC Info (Do NOT chart on this entry -- for MONITORING) 1 each PRN DAILY PRN MC SEE COMMENTS; Start 12/27/16 at 13:45; Stop 12/29/16 at 13:44; Status DC Morphine Sulfate 5 mg 1X ONCE IV Last administered on 12/27/16 13:54; Start 12/27/16 at 13:45; Stop 12/27/16 at 13:46; Status DC Oxycodone/ Acetaminophen (Percocet 7.5/ 325) 1 tab PRN Q4HRS PRN PO PAIN Last administered on 12/30/16 12:01; Start 12/27/16 at 15:00 Fentanyl Citrate (Fentanyl 2ml Vial) 75 mcg PRN Q2HR PRN IV PAIN Last administered on 12/28/16 08:26; Start 12/27/16 at 15:00; Stop 12/28/16 at 09:21 ; Status DC Diphenhydramine HCl (Benadryl) 50 mg 1X ONCE IVP Last administered on 15:11; Start 12/27/16 at 15:00; Stop 12/27/16 at 15:01; Status DC Diphenhydramine HCl (Benadryl) 50 mg PRN Q6HRS PRN PO ITCHING Last administered on 12/30/16 08:16; Start 12/27/16 at 15:00 Oxycodone HCl (Roxicodone) 10 mg PRN Q6HRS PRN PO PAIN Last administered on 08:26; Start 12/27/16 at 15:00; Stop 12/28/16 at 09:21; Status DC Enoxaparin Sodium (Lovenox Per Pharmacy Prophylaxis Dosing) 1 each PRN DAILY PRN MC SEE COMMENTS; Start 12/27/16 at 15:00 Polyethylene Glycol (miraLAX PACKET) 17 gm DAILY PO ; Start 12/27/16 at 15:00 Docusate Sodium (Colace) 100 mg PRN DAILY PRN PO CONSTIPATION; Start 12/27/16 at 15:00 Potassium Chloride (Klor-Con) 20 meq 1X ONCE PO Last administered on 15:11; Start 12/27/16 at 15:00; Stop 12/27/16 at 15:01; Status DC Enoxaparin Sodium (Lovenox 40mg Syringe) 40 mg Q24H SQ Last administered on 16:13; Start 12/27/16 at 16:00 Tamsulosin HCl 0.4 mg 0.4 mg BID PO Last administered on 12/30/16 08:16; Start 12/27/16 at 21:00 Vancomycin HCl/ Sodium Chloride (Iv Sodium Chloride 0.9% 500ml Bag) 500 ml @ 250 mls/hr Q8H IV Last administered on 12/30/16 08:17; Start 12/28/16 at 00:00 Vancomycin HCl 1 each 1X ONCE MC ; Start 12/28/16 at 15:30; Stop 12/28/16 at 15 :31; Status DC Fentanyl Citrate (Fentanyl 2ml Vial) 100 mcg PRN Q2HR PRN IV PAIN Last administered on 12/30/16 04:11; Start 12/28/16 at 09:30 Oxycodone HCl (Roxicodone) 10 mg PRN Q4HRS PRN PO PAIN Last administered on 12:00; Start 12/28/16 at 13:32 Morphine Sulfate (Ms Contin) 30 mg 1X ONCE PO Last administered on 12/28/16 09:42; Start 12/28/16 at 09:30; Stop 12/28/16 at 09:31; Status DC Ketorolac Tromethamine (Toradol) 30 mg 1X ONCE IV Last administered on 10:36; Start 12/28/16 at 10:00; Stop 12/28/16 at 10:14; Status DC Ketorolac Tromethamine 15 mg 15 mg PRN Q6HRS PRN IV PAIN Last administered on 08:09; Start 12/28/16 at 10:00; Stop 01/02/17 at 09:59 Potassium Chloride/Dextrose/ Sod Cl (KCl 20 Meq In D5W-1/2 NS) 1,000 ml @ 100 mls/hr Q10H IV Last administered on 12/30/16 04:10; Start 12/28/16 at 10:00 Morphine Sulfate (Ms Contin) 15 mg BID PO Last administered on 12/30/16 08:10 ; Start 12/28/16 at 11:00 Ondansetron HCl (Zofran) 4 mg PRN Q6HRS PRN IV NAUSEA/VOMITING Last administered on 12/30/16 08:13; Start 12/28/16 at 11:45 Prochlorperazine Edisylate (Compazine) 10 mg PRN Q6HRS PRN IV NAUSEA/VOMITING Last administered on 12/30/16 01:07; Start 12/29/16 at 02:15 Flurbiprofen Sodium (Ocufen) 1 drop PRN QID PRN OD PAIN Last administered on 08:08; Start 12/29/16 at 02:15 Hydromorphone HCl 1 mg 1 mg PRN Q4HRS PRN IV PAIN Last administered on 16:10; Start 12/29/16 at 02:15 Promethazine HCl/ Sodium Chloride (Phenergan/Iv Sodium Chloride 0.9% 50ml) 50.5 ml @ 151.5 mls/ hr PRN Q6HRS PRN IV NAUSEA/VOMITING; Start 12/29/16 at 05:00 Ibuprofen (Motrin) 600 mg TID PO Last administered on 12/30/16 08:14; Start at 14:00 Iohexol (Omnipaque 300 Mg/ml) 75 ml 1X ONCE IV Last administered on 12/29/16 16:31; Start 12/29/16 at 15:30; Stop 12/29/16 at 15:31; Status DC Info (Do NOT chart on this entry -- for MONITORING) 1 each PRN DAILY PRN MC SEE COMMENTS; Start 12/29/16 at 15:30; Stop 12/31/16 at 15:29 Vitals/I & O Vital Sign - Last 24 Hours 12/29/16 12/29/16 12/29/16 12/29/16 13:51 14:51 15:00 16:10 Temp 98.2 98.2 Pulse 62 Resp 18 B/P 121/70 Pulse Ox 95 O2 Delivery Room Air Room Air Room Air Room Air 12/29/16 12/29/16 12/29/16 12/29/16 17:23 17:37 19:00 19:40 Temp 96.4 96.4 Pulse 73 Resp 18 B/P 147/73 Pulse Ox 97 O2 Delivery Room Air Room Air Room Air Room Air 12/29/16 12/29/16 12/30/16 12/30/16 19:53 23:02 00:43 00:43 Temp 97.9 97.9 Pulse 78 Resp 18 18 18 18 B/P 137/67 Pulse Ox 94 O2 Delivery Room Air Room Air 12/30/16 12/30/16 12/30/16 12/30/16 03:07 04:11 05:47 07:00 Temp 97.9 97.6 97.9 97.6 Pulse 72 53 Resp 18 18 20 B/P 138/82 131/76 Pulse Ox 97 92 O2 Delivery Room Air Room Air Room Air Room Air 12/30/16 12/30/16 12/30/16 12/30/16 07:15 07:15 07:15 08:10 Pulse Ox 98 O2 Delivery Room Air Room Air Room Air Room Air 12/30/16 12/30/16 12/30/16 11:00 12:00 12:01 Temp 97.4 97.4 Pulse 60 Resp 20 B/P 123/84 Pulse Ox 96 O2 Delivery Room Air Room Air Room Air Intake and Output 12/29/16 12/29/16 12/30/16 15:00 23:00 07:00 Intake Total 240 ml 180 ml 500 ml Output Total 400 ml 325 ml Balance -160 ml -145 ml 500 ml CHEN CAMPUZANO MD Dec 30, 2016 12:24
[2016-12-30] MEDS ORDERED: BENZOCAINE/MENTHOL LOZENGE. PO PRN (12:30)
[2016-12-30] MEDS ORDERED: LIDO:MAALOX:DONNATAL 1:1:1 15 ML SINGLE DOSE SWSW PRN (12:30)
[2016-12-30] MEDS: HYDROMORPHONE 2 MG/ML VIAL. IV PRN ×3 (13:13→22:35)
[2016-12-30 15:00] VITALS: BP 121/74
[2016-12-30] MEDS: DO NOT USE 40 MG/0.4 ML DISP.SYRIN SQ SCH (16:44)
[2016-12-30 19:00] VITALS: BP 164/84
[2016-12-30 23:00] VITALS: BP 128/78
[2016-12-31] MEDS: VANCOMYCIN 1.5 GM in IV NORMAL SALINE 500ML BAG 500 ML IV SCH (00:26)
[2016-12-31] MEDS: FENTANYL PF 100 MCG/2 ML VIAL. IV PRN ×5 (00:27→23:04)
[2016-12-31] MEDS: ONDANSETRON PF 4 MG/2 ML VIAL. IV PRN ×3 (01:31→20:01)
[2016-12-31] MEDS: OXYCODONE IR 5 MG TABLET. PO PRN ×5 (01:46→23:04)
[2016-12-31] MEDS: OXYCODONE/APAP 7.5/325 TABLET. PO PRN ×3 (01:47→20:01)
[2016-12-31] MEDS: HYDROMORPHONE 2 MG/ML VIAL. IV PRN ×4 (02:33→21:40)
[2016-12-31 03:00] VITALS: BP 144/77
[2016-12-31] MEDS: PROCHLORPERAZINE 10 MG/2 ML VIAL. IV PRN (04:14)
[2016-12-31] MEDS: MEROPENEM 500 MG in IV NORMAL SALINE 50ML 50 ML IV SCH ×3 (06:00→21:02)
[2016-12-31] MEDS: CLINDAMYCIN 600MG PREMIX 50 ML IV SCH (06:01)
[2016-12-31 07:00] VITALS: BP 124/73
[2016-12-31] MEDS: POLYETHYLENE GLYCOL 3350 17 GM PACKET. PO SCH (07:50)
[2016-12-31] MEDS: POTASSIUM CL 20MEQ D5-0.45NACL 1,000 ML IV SCH ×3 (08:00→23:06)
[2016-12-31] MEDS: FLURBIPROFEN 0.03% OD PRN (08:13)
[2016-12-31] MEDS: IBUPROFEN 600 MG TABLET. PO SCH ×2 (08:13→14:00)
[2016-12-31] MEDS: TAMSULOSIN 0.4 MG CAP.ER.24H. PO SCH ×2 (08:13→21:01)
[2016-12-31] MEDS: MORPHINE ER 15 MG TABLET.ER PO SCH ×2 (08:13→21:01)
[2016-12-31 11:00] VITALS: BP 121/79
--- NOTE | 2016-12-31 11:01 | PDOC ---
Infectious Disease Note Subjective Subjective Feeling little better, still hurts Vision right eye somewhat hazy still with pain with movement horizontally able to open mouth, but hurts to do so in cheek area Threw up earlier Some urinary retention ROS ROS GEN: Denies fevers, chills, sweats HEENT: Denies blurred vision, sore throat CV: Denies chest pain RESP: Denies shortness of air, cough GI: Denies n/v/d NEURO: Denies confusion, dizziness MSK: Denies weakness, joint pain/swelling Vital Sign Vital Signs Vital Signs Date Time Temp Pulse Resp B/P Pulse Ox O2 Delivery O2 Flow Rate FiO2 12/31/16 10:03 Room Air 12/31/16 07:00 97.9 50 18 124/73 92 97.9 Physical Exam PHYSICAL EXAM GENERAL: NAD, Alert HEENT: PERRL, OC/OP,, rt eye swelling and redness much better NECK: Supple, no JVD, no LN LUNGS: Clear HEART: S1S2, no gallop, no murmur ABD: Soft, NT, no organomegaly, no rebound EXT: No edema, no cyanosis STONE CUTTER: Alert, 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, no focal neurologic deficit SKIN: No rash IV: ok Labs Lab Laboratory Tests Test 12/31/16 03:35 C-Reactive Protein, Quantitative 39.2mg/L (0-3.3) Objective Assessment Preseptal orbital cellulitis rt Hep C Fever Leukocytosis ? Orbital abscess Plan Plan of Care Meropenem DIDIER HASSAN MD Dec 31, 2016 11:01
--- NOTE | 2016-12-31 13:01 | PDOC ---
PROGRESS NOTES Chief Complaint Chief Complaint A/P Facial cellulitis Orbital cellulitis, right Hep C, Urinary retention Plan Continue Meropenem Flomax Pain control labs reviewed, follow blood cx ID following, PRN Dilaudid for pain control History of Present Illness History of Present Illness Swelling and erythema improving, pain better no fever no swallowing problems Vitals Vitals Vital Signs Date Time Temp Pulse Resp B/P Pulse Ox O2 Delivery O2 Flow Rate FiO2 12/31/16 12:59 18 Room Air 12/31/16 11:00 97.6 45 121/79 92 97.6 Physical Exam General: Alert, Oriented X3, Cooperative, No acute distress Heart: Regular rate, Normal S1, Normal S2, No murmurs Abdomen: Normal bowel sounds, Soft Extremities: No clubbing, No edema Skin: Other (marked facial cellilits with swelling to periorbit, eye swollen shut) Labs LABS Laboratory Tests Test 12/31/16 03:35 C-Reactive Protein, Quantitative 39.2mg/L (0-3.3) Assessment and Plan Assessmemt and Plan Problems Medical Problems: (1) Cellulitis Status: Acute (2) Preseptal cellulitis of right eye Status: Acute Problems: Comment Review of Relevant I have reviewed the following items [place] (where applicable) has been applied. Labs Laboratory Tests Test 12/29/16 15:30 12/29/16 22:00 12/30/16 05:25 12/31/16 03:35 Erythrocyte Sedimentation Rate 45 (0-15) Urine Collection Type Unknown Urine Color Yellow Urine Clarity Clear Urine pH 6.5 Urine Specific [place] 1.010 Urine Protein Negativemg/dL (NEG-TRACE) Urine Glucose (UA) Negativemg/dL (NEG) Urine Ketones (Stick) Negativemg/dL (NEG) Urine Blood Negative (NEG) Urine Nitrite Negative (NEG) Urine Bilirubin Negative (NEG) Urine Urobilinogen Dipstick 0.2mg/dL (0.2 mg/dL) Urine Leukocyte Esterase Negative (NEG) Urine RBC Occ/HPF (0-2) Urine WBC 0/HPF (0-4) Urine Squamous Epithelial Cells Occ/LPF Urine Bacteria 0/HPF (0-FEW) C-Reactive Protein, Quantitative 54.2mg/L (0-3.3) 39.2mg/L (0-3.3) Laboratory Tests Test 12/31/16 03:35 C-Reactive Protein, Quantitative 39.2mg/L (0-3.3) Microbiology 12/27/16 Blood Culture - Preliminary, Resulted NO GROWTH AFTER 4 DAYS Medications Current Medications Sodium Chloride (Iv Sodium Chloride 0.9% 1000ml Bag) 1,000 ml @ 1,000 mls/hr Q1H IV Last administered on 12/27/16 12:19; Start 12/27/16 at 12:00; Stop at 12:59; Status DC Sodium Chloride (Normal Saline Flush) 10 ml QSHIFT PRN IV AFTER MEDS AND BLOOD DRAWS; Start 12/27/16 at 12:00 Fentanyl Citrate (Fentanyl 2ml Vial) 50 mcg 1X ONCE IV Last administered on 12:32; Start 12/27/16 at 12:00; Stop 12/27/16 at 12:07; Status DC Levofloxacin/ Dextrose 1 each 1 each PRN DAILY PRN MC SEE COMMENTS; Start 12/27 at 12:00; Stop 12/27/16 at 13:07; Status DC Levofloxacin/ Dextrose (LEVAQUIN 500mg PREMIX) 100 ml @ 100 mls/hr 1X ONCE IV Last administered on 12/27/16 12:34; Start 12/27/16 at 12:15; Stop 12/27/16 at 13:14; Status DC Vancomycin HCl 1 each 1 each PRN DAILY PRN MC SEE COMMENTS Last administered on 12/30/16 10:54; Start 12/27/16 at 13:15; Stop 12/31/16 at 06:42; Status DC Meropenem 500 mg/ Sodium Chloride 50 ml @ 100 mls/hr Q8HRS IV Last administered on 12/31/16 06:00; Start 12/27/16 at 22:00 Clindamycin Phosphate 50 ml @ 100 mls/hr Q8HRS IV Last administered on 06:01; Start 12/27/16 at 22:00; Stop 12/31/16 at 11:02; Status DC Vancomycin HCl 2 gm/Sodium Chloride 500 ml @ 250 mls/hr 1X ONCE IV Last administered on 12/27/16 16:11; Start 12/27/16 at 14:00; Stop 12/27/16 at 15:59 ; Status DC Clindamycin Phosphate 50 ml @ 100 mls/hr 1X ONCE IV Last administered on 12/27 13:44; Start 12/27/16 at 14:00; Stop 12/27/16 at 14:29; Status DC Meropenem/Sodium Chloride (Merrem/Iv Sodium Chloride 0.9% 50ml) 50 ml @ 100 mls /hr 1X ONCE IV Last administered on 12/27/16 14:37; Start 12/27/16 at 14:00; Stop 12/27/16 at 14:29; Status DC Iohexol (Omnipaque 300 Mg/ml) 75 ml 1X ONCE IV Last administered on 12/27/16 14:04; Start 12/27/16 at 13:30; Stop 12/27/16 at 13:33; Status DC Info (Do NOT chart on this entry -- for MONITORING) 1 each PRN DAILY PRN MC SEE COMMENTS; Start 12/27/16 at 13:45; Stop 12/29/16 at 13:44; Status DC Morphine Sulfate 5 mg 1X ONCE IV Last administered on 12/27/16 13:54; Start 12/27/16 at 13:45; Stop 12/27/16 at 13:46; Status DC Oxycodone/ Acetaminophen (Percocet 7.5/ 325) 1 tab PRN Q4HRS PRN PO MODERATE PAIN Last administered on 12/31/16 06:00; Start 12/27/16 at 15:00 Fentanyl Citrate (Fentanyl 2ml Vial) 75 mcg PRN Q2HR PRN IV PAIN Last administered on 12/28/16 08:26; Start 12/27/16 at 15:00; Stop 12/28/16 at 09:21 ; Status DC Diphenhydramine HCl (Benadryl) 50 mg 1X ONCE IVP Last administered on 15:11; Start 12/27/16 at 15:00; Stop 12/27/16 at 15:01; Status DC Diphenhydramine HCl (Benadryl) 50 mg PRN Q6HRS PRN PO ITCHING Last administered on 12/30/16 08:16; Start 12/27/16 at 15:00 Oxycodone HCl (Roxicodone) 10 mg PRN Q6HRS PRN PO PAIN Last administered on 08:26; Start 12/27/16 at 15:00; Stop 12/28/16 at 09:21; Status DC Enoxaparin Sodium (Lovenox Per Pharmacy Prophylaxis Dosing) 1 each PRN DAILY PRN MC SEE COMMENTS; Start 12/27/16 at 15:00 Polyethylene Glycol (miraLAX PACKET) 17 gm DAILY PO ; Start 12/27/16 at 15:00 Docusate Sodium (Colace) 100 mg PRN DAILY PRN PO CONSTIPATION; Start 12/27/16 at 15:00 Potassium Chloride (Klor-Con) 20 meq 1X ONCE PO Last administered on 15:11; Start 12/27/16 at 15:00; Stop 12/27/16 at 15:01; Status DC Enoxaparin Sodium (Lovenox 40mg Syringe) 40 mg Q24H SQ Last administered on 16:44; Start 12/27/16 at 16:00 Tamsulosin HCl 0.4 mg 0.4 mg BID PO Last administered on 12/31/16 08:13; Start 12/27/16 at 21:00 Vancomycin HCl/ Sodium Chloride (Iv Sodium Chloride 0.9% 500ml Bag) 500 ml @ 250 mls/hr Q8H IV Last administered on 12/31/16 00:26; Start 12/28/16 at 00:00 ; Stop 12/31/16 at 06:39; Status DC Vancomycin HCl 1 each 1X ONCE MC ; Start 12/28/16 at 15:30; Stop 12/28/16 at 15 :31; Status DC Fentanyl Citrate (Fentanyl 2ml Vial) 100 mcg PRN Q2HR PRN IV MODERATE PAIN Last administered on 12/31/16 12:58; Start 12/28/16 at 09:30 Oxycodone HCl (Roxicodone) 10 mg PRN Q4HRS PRN PO SEVERE PAIN Last administered on 12/31/16 12:59; Start 12/28/16 at 13:32 Morphine Sulfate (Ms Contin) 30 mg 1X ONCE PO Last administered on 12/28/16 09:42; Start 12/28/16 at 09:30; Stop 12/28/16 at 09:31; Status DC Ketorolac Tromethamine (Toradol) 30 mg 1X ONCE IV Last administered on 10:36; Start 12/28/16 at 10:00; Stop 12/28/16 at 10:14; Status DC Ketorolac Tromethamine 15 mg 15 mg PRN Q6HRS PRN IV PAIN Last administered on 08:09; Start 12/28/16 at 10:00; Stop 12/30/16 at 14:32; Status DC Potassium Chloride/Dextrose/ Sod Cl (KCl 20 Meq In D5W-1/2 NS) 1,000 ml @ 100 mls/hr Q10H IV Last administered on 12/31/16 10:10; Start 12/28/16 at 10:00 Morphine Sulfate (Ms Contin) 15 mg BID PO Last administered on 12/31/16 08:13 ; Start 12/28/16 at 11:00 Ondansetron HCl (Zofran) 4 mg PRN Q6HRS PRN IV NAUSEA/VOMITING Last administered on 12/31/16 10:09; Start 12/28/16 at 11:45 Prochlorperazine Edisylate (Compazine) 10 mg PRN Q6HRS PRN IV NAUSEA/VOMITING Last administered on 12/31/16 04:14; Start 12/29/16 at 02:15 Flurbiprofen Sodium (Ocufen) 1 drop PRN QID PRN OD PAIN Last administered on 08:13; Start 12/29/16 at 02:15 Hydromorphone HCl 1 mg 1 mg PRN Q4HRS PRN IV SEVERE PAIN Last administered on 10:03; Start 12/29/16 at 02:15 Promethazine HCl/ Sodium Chloride (Phenergan/Iv Sodium Chloride 0.9% 50ml) 50.5 ml @ 151.5 mls/ hr PRN Q6HRS PRN IV NAUSEA/VOMITING; Start 12/29/16 at 05:00 Ibuprofen (Motrin) 600 mg TID PO Last administered on 12/31/16 08:13; Start at 14:00 Iohexol (Omnipaque 300 Mg/ml) 75 ml 1X ONCE IV Last administered on 12/29/16 16:31; Start 12/29/16 at 15:30; Stop 12/29/16 at 15:31; Status DC Info (Do NOT chart on this entry -- for MONITORING) 1 each PRN DAILY PRN MC SEE COMMENTS; Start 12/29/16 at 15:30; Stop 12/31/16 at 15:29 Multi-Ingredient Mouthwash/Gargle (Gi Cocktail Single Dose) 15 ml PRN 1X PRN SWSW CHEST PAIN Last administered on 12/31/16t 01:32; Start 12/30/16 at 12:30 Throat Lozenges (Cepacol Sore Throat Lozenge) 1 cale PRN Q2HRS PRN PO SORE THROAT; Start 12/30/16 at 12:30 Vitals/I & O Vital Sign - Last 24 Hours 12/30/16 12/30/16 12/30/16 12/30/16 13:13 15:00 16:43 16:43 Temp 97.4 97.4 Pulse 64 Resp 20 B/P 121/74 Pulse Ox 95 O2 Delivery Room Air Room Air Room Air Room Air 12/30/16 12/30/16 12/30/16 12/30/16 18:09 19:00 20:00 21:31 Temp 97.0 97.0 Pulse 63 Resp 18 B/P 164/84 Pulse Ox 97 O2 Delivery Room Air Room Air Room Air Room Air 12/30/16 12/30/16 12/31/16 12/31/16 22:35 23:00 00:27 01:47 Temp 97.3 97.3 Pulse 53 Resp 18 18 B/P 128/78 Pulse Ox 95 O2 Delivery Room Air Room Air Room Air 12/31/16 12/31/16 12/31/16 12/31/16 03:00 04:28 06:00 07:00 Temp 97.0 97.9 97.0 97.9 Pulse 52 50 Resp 18 22 18 B/P 144/77 124/73 Pulse Ox 93 92 O2 Delivery Room Air Room Air Room Air Room Air 12/31/16 12/31/16 12/31/16 12/31/16 07:10 07:20 07:20 08:13 O2 Delivery Room Air Room Air Room Air Room Air 12/31/16 12/31/16 12/31/16 12/31/16 10:03 11:00 12:00 12:00 Temp 97.6 97.6 Pulse 45 Resp 18 16 16 B/P 121/79 Pulse Ox 92 O2 Delivery Room Air Room Air Room Air Room Air 12/31/16 12/31/16 12:58 12:59 Resp 18 18 O2 Delivery Room Air Room Air Intake and Output 12/30/16 12/30/16 12/31/16 15:00 23:00 07:00 Intake Total 0 ml Output Total 400 ml Balance -400 ml 0 ml ROBYN CAMPBELL MD Dec 31, 2016 13:01
--- NOTE | 2016-12-31 14:01 | PDOC ---
Provider Note Provider Note UROLOGY: c/c chronic urine retention, difficulty voiding Patient previously seen in clinic several weeks ago He is scheduled for outpatient cystoscopy Plan: Continue Flomax 0.4mg PO b.i.d. Thanks, SANGEETHA BALES DO Dec 31, 2016 14:01
[2016-12-31] MEDS ORDERED: DOCUSATE SODIUM 100 MG CAPSULE. PO PRN (14:15)
[2016-12-31 15:00] VITALS: BP 126/76
[2016-12-31] MEDS: DO NOT USE 40 MG/0.4 ML DISP.SYRIN SQ SCH (17:20)
[2016-12-31 19:00] VITALS: BP 163/94
[2016-12-31 23:02] VITALS: BP 140/81
[2017-01-01] MEDS: OXYCODONE/APAP 7.5/325 TABLET. PO PRN ×2 (01:43→05:49)
[2017-01-01] MEDS: HYDROMORPHONE 2 MG/ML VIAL. IV PRN ×5 (01:43→20:45)
[2017-01-01 03:01] VITALS: BP 139/81
[2017-01-01] MEDS: FENTANYL PF 100 MCG/2 ML VIAL. IV PRN ×5 (03:40→21:49)
[2017-01-01] MEDS: OXYCODONE IR 5 MG TABLET. PO PRN ×4 (03:40→21:50)
--- NOTE | 2017-01-01 05:41 | CONS ---
DATE OF CONSULTATION: 12/31/2016 CHIEF COMPLAINT: Chronic urinary retention. HISTORY OF PRESENT ILLNESS: This is a 41-year-old inmate that was admitted to the hospital due to right facial swelling and redness. He has a history of periorbital cellulitis that was treated at [facility] previously. Urology was asked to see the patient due to history of slow stream and incomplete voiding. In fact, I have seen the patient in the office several weeks ago for this problem. We are currently awaiting approval from the correction to proceed with outpatient cystoscopy. The patient states his stream is slow. He normally sits to void. Occasionally, he feels that he does not get the bladder emptied completely. At one point, we did a bladder scan in the office, which showed greater than 500 mL postvoid residual urine volume. ALLERGIES: PENICILLIN, GABAPENTIN, GLUTEN, IBUPROFEN, TRAMADOL. PAST SURGICAL HISTORY: The patient denies any major abdominal surgery. PAST MEDICAL HISTORY: The patient has a history of maxillofacial trauma from a injury. He denies diabetes. No history of hypertension. PHYSICAL EXAMINATION: GENERAL DESCRIPTION: A 41-year-old male, heavily tattooed over most of his body. He is in no acute distress. The patient has some swelling and redness around the right periorbital area. ABDOMEN: Soft, nontender. Negative for flank pain to palpation bilaterally. No palpable abdominal masses. He denies suprapubic tenderness. RECTAL: Not performed at this time. MUSCULOSKELETAL: Good range of motion. Negative for cyanosis or edema. IMPRESSION: 1. Chronic urinary retention. 2. Slow stream. PLAN: The patient is scheduled to undergo outpatient cystoscopy in the near future to determine if he has bladder outlet obstruction secondary to urethral stricture disease or prostate versus neurogenic hypotonic bladder. Thank you for the opportunity to participate in the evaluation of this patient. SANGEETHA BALES DO DR: MIKALA/byron JOB#: [id number] / [id number]
[2017-01-01] MEDS: MEROPENEM 500 MG in IV NORMAL SALINE 50ML 50 ML IV SCH ×3 (05:50→21:49)
[2017-01-01 07:00] VITALS: BP 151/73
[2017-01-01] MEDS: TAMSULOSIN 0.4 MG CAP.ER.24H. PO SCH ×2 (08:34→20:44)
[2017-01-01] MEDS: MORPHINE ER 15 MG TABLET.ER PO SCH ×2 (08:34→20:44)
[2017-01-01] MEDS: ONDANSETRON PF 4 MG/2 ML VIAL. IV PRN ×2 (08:35→17:38)
[2017-01-01] MEDS: POTASSIUM CL 20MEQ D5-0.45NACL 1,000 ML IV SCH (08:42)
[2017-01-01] MEDS: POLYETHYLENE GLYCOL 3350 17 GM PACKET. PO SCH (09:00)
--- NOTE | 2017-01-01 10:29 | PDOC ---
Infectious Disease Note Subjective Subjective feeling better ROS ROS GEN: Denies fevers, chills, sweats HEENT: Denies blurred vision, sore throat CV: Denies chest pain RESP: Denies shortness of air, cough GI: Denies n/v/d NEURO: Denies confusion, dizziness MSK: Denies weakness, joint pain/swelling Vital Sign Vital Signs Vital Signs Date Time Temp Pulse Resp B/P Pulse Ox O2 Delivery O2 Flow Rate FiO2 01/01/17 09:10 18 Room Air 01/01/17 07:00 97.5 67 151/73 99 97.5 Physical Exam PHYSICAL EXAM GENERAL: NAD, Alert HEENT: PERRL, OC/OP,, rt sided face is less red and less swollen, some swelling and tenderness at the rt lateral nose NECK: Supple, no JVD, no LN LUNGS: Clear HEART: S1S2, no gallop, no murmur ABD: Soft, NT, no organomegaly, no rebound EXT: No edema, no cyanosis MAC ARTIST: Alert, 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, no focal neurologic deficit SKIN: No rash IV: ok Objective Assessment Preseptal orbital cellulitis rt with facial cellulitis Hep C Fever Leukocytosis ? Orbital abscess Plan Plan of Care Meropenem DIDIER HASSAN MD Jan 01, 2017 10:29
[2017-01-01 11:00] VITALS: BP 139/86
--- NOTE | 2017-01-01 12:26 | PDOC ---
PROGRESS NOTES Chief Complaint Chief Complaint - Facial cellulitis - R orbital cellulitis - Hepatitis C - Urinary retention, chronic; followed by Dr. Duenas History of Present Illness History of Present Illness Patient with no acute events overnight. Reports that overall the swelling and erythema has been improving. However there are focal areas of swelling around the R eye that have grown. complains of associated R eye fuzziness/blurriness and decreased flow of air through the R nares. Early this AM pt popped a pimple just beside his nose that expelled a thick white discharge. Denies any recent dental pain, but has poor dentition, and recently lost some teeth on the R side of his mouth.. Vitals Vitals Vital Signs Date Time Temp Pulse Resp B/P Pulse Ox O2 Delivery O2 Flow Rate FiO2 01/01/17 11:00 97.9 81 18 139/86 98 Room Air 97.9 Physical Exam General: Alert, Oriented X3, Cooperative, No acute distress Heart: Regular rate, Normal S1, Normal S2, No murmurs Abdomen: Normal bowel sounds, Soft Extremities: No clubbing, No edema Skin: Other (marked facial cellilits with swelling to periorbit, R eye somewhat swollen shut) Review of Systems Review of Systems denies fever, chills + R face / orbital swelling and redness + R eye blurriness decreased airflow of R nares Assessment and Plan Assessmemt and Plan Problems Medical Problems: (1) Cellulitis Status: Acute (2) Preseptal cellulitis of right eye Status: Acute ASSESSMENT: - Facial cellulitis - R orbital cellulitis - Hepatitis C - Urinary retention, chronic; followed by Dr. Duenas PLAN: - consult Dr. Flex Frey, behavioral health care manager; for ?oral abscess / facial swelling - per ID: cont Meropenem - per Urology: cont Flomax - cont PRN Dilaudid for pain control - repeat daily labs - follow blood cx; no growth 4 days Problems: Comment Review of Relevant I have reviewed the following items [place] (where applicable) has been applied. Labs Laboratory Tests Test 12/31/16 03:35 C-Reactive Protein, Quantitative 39.2mg/L (0-3.3) Hepatitis C Antibody >11.0s/co ratio Microbiology 12/27/16 Blood Culture - Preliminary, Resulted NO GROWTH AFTER 4 DAYS Medications Current Medications Sodium Chloride (Iv Sodium Chloride 0.9% 1000ml Bag) 1,000 ml @ 1,000 mls/hr Q1H IV Last administered on 12/27/16 12:19; Start 12/27/16 at 12:00; Stop at 12:59; Status DC Sodium Chloride (Normal Saline Flush) 10 ml QSHIFT PRN IV AFTER MEDS AND BLOOD DRAWS; Start 12/27/16 at 12:00 Fentanyl Citrate (Fentanyl 2ml Vial) 50 mcg 1X ONCE IV Last administered on 12:32; Start 12/27/16 at 12:00; Stop 12/27/16 at 12:07; Status DC Levofloxacin/ Dextrose 1 each 1 each PRN DAILY PRN MC SEE COMMENTS; Start 12/27 at 12:00; Stop 12/27/16 at 13:07; Status DC Levofloxacin/ Dextrose (LEVAQUIN 500mg PREMIX) 100 ml @ 100 mls/hr 1X ONCE IV Last administered on 12/27/16 12:34; Start 12/27/16 at 12:15; Stop 12/27/16 at 13:14; Status DC Vancomycin HCl 1 each 1 each PRN DAILY PRN MC SEE COMMENTS Last administered on 12/30/16 10:54; Start 12/27/16 at 13:15; Stop 12/31/16 at 06:42; Status DC Meropenem 500 mg/ Sodium Chloride 50 ml @ 100 mls/hr Q8HRS IV Last administered on 01/01/17 05:50; Start 12/27/16 at 22:00 Clindamycin Phosphate 50 ml @ 100 mls/hr Q8HRS IV Last administered on 06:01; Start 12/27/16 at 22:00; Stop 12/31/16 at 11:02; Status DC Vancomycin HCl 2 gm/Sodium Chloride 500 ml @ 250 mls/hr 1X ONCE IV Last administered on 12/27/16 16:11; Start 12/27/16 at 14:00; Stop 12/27/16 at 15:59 ; Status DC Clindamycin Phosphate 50 ml @ 100 mls/hr 1X ONCE IV Last administered on 12/27 13:44; Start 12/27/16 at 14:00; Stop 12/27/16 at 14:29; Status DC Meropenem/Sodium Chloride (Merrem/Iv Sodium Chloride 0.9% 50ml) 50 ml @ 100 mls /hr 1X ONCE IV Last administered on 12/27/16 14:37; Start 12/27/16 at 14:00; Stop 12/27/16 at 14:29; Status DC Iohexol (Omnipaque 300 Mg/ml) 75 ml 1X ONCE IV Last administered on 12/27/16 14:04; Start 12/27/16 at 13:30; Stop 12/27/16 at 13:33; Status DC Info (Do NOT chart on this entry -- for MONITORING) 1 each PRN DAILY PRN MC SEE COMMENTS; Start 12/27/16 at 13:45; Stop 12/29/16 at 13:44; Status DC Morphine Sulfate 5 mg 1X ONCE IV Last administered on 12/27/16 13:54; Start 12/27/16 at 13:45; Stop 12/27/16 at 13:46; Status DC Oxycodone/ Acetaminophen (Percocet 7.5/ 325) 1 tab PRN Q4HRS PRN PO MODERATE PAIN Last administered on 01/01/17 05:49; Start 12/27/16 at 15:00 Fentanyl Citrate (Fentanyl 2ml Vial) 75 mcg PRN Q2HR PRN IV PAIN Last administered on 12/28/16 08:26; Start 12/27/16 at 15:00; Stop 12/28/16 at 09:21 ; Status DC Diphenhydramine HCl (Benadryl) 50 mg 1X ONCE IVP Last administered on 15:11; Start 12/27/16 at 15:00; Stop 12/27/16 at 15:01; Status DC Diphenhydramine HCl (Benadryl) 50 mg PRN Q6HRS PRN PO ITCHING Last administered on 12/30/16 08:16; Start 12/27/16 at 15:00 Oxycodone HCl (Roxicodone) 10 mg PRN Q6HRS PRN PO PAIN Last administered on 08:26; Start 12/27/16 at 15:00; Stop 12/28/16 at 09:21; Status DC Enoxaparin Sodium (Lovenox Per Pharmacy Prophylaxis Dosing) 1 each PRN DAILY PRN MC SEE COMMENTS; Start 12/27/16 at 15:00 Polyethylene Glycol (miraLAX PACKET) 17 gm DAILY PO ; Start 12/27/16 at 15:00 Docusate Sodium (Colace) 100 mg PRN DAILY PRN PO CONSTIPATION; Start 12/27/16 at 15:00; Stop 12/31/16 at 14:10; Status DC Potassium Chloride (Klor-Con) 20 meq 1X ONCE PO Last administered on 15:11; Start 12/27/16 at 15:00; Stop 12/27/16 at 15:01; Status DC Enoxaparin Sodium (Lovenox 40mg Syringe) 40 mg Q24H SQ Last administered on 17:20; Start 12/27/16 at 16:00 Tamsulosin HCl 0.4 mg 0.4 mg BID PO Last administered on 01/01/17 08:34; Start 12/27/16 at 21:00 Vancomycin HCl/ Sodium Chloride (Iv Sodium Chloride 0.9% 500ml Bag) 500 ml @ 250 mls/hr Q8H IV Last administered on 12/31/16 00:26; Start 12/28/16 at 00:00 ; Stop 12/31/16 at 06:39; Status DC Vancomycin HCl 1 each 1X ONCE MC ; Start 12/28/16 at 15:30; Stop 12/28/16 at 15 :31; Status DC Fentanyl Citrate (Fentanyl 2ml Vial) 100 mcg PRN Q2HR PRN IV MODERATE PAIN Last administered on 01/01/17 08:35; Start 12/28/16 at 09:30 Oxycodone HCl (Roxicodone) 10 mg PRN Q4HRS PRN PO SEVERE PAIN Last administered on 01/01/17 03:40; Start 12/28/16 at 13:32 Morphine Sulfate (Ms Contin) 30 mg 1X ONCE PO Last administered on 12/28/16 09:42; Start 12/28/16 at 09:30; Stop 12/28/16 at 09:31; Status DC Ketorolac Tromethamine (Toradol) 30 mg 1X ONCE IV Last administered on 10:36; Start 12/28/16 at 10:00; Stop 12/28/16 at 10:14; Status DC Ketorolac Tromethamine 15 mg 15 mg PRN Q6HRS PRN IV PAIN Last administered on 08:09; Start 12/28/16 at 10:00; Stop 12/30/16 at 14:32; Status DC Potassium Chloride/Dextrose/ Sod Cl (KCl 20 Meq In D5W-1/2 NS) 1,000 ml @ 100 mls/hr Q10H IV Last administered on 01/01/17 08:42; Start 12/28/16 at 10:00 Morphine Sulfate (Ms Contin) 15 mg BID PO Last administered on 01/01/17 08:34 ; Start 12/28/16 at 11:00 Ondansetron HCl (Zofran) 4 mg PRN Q6HRS PRN IV NAUSEA/VOMITING 1ST CHOICE Last administered on 01/01/17 08:35; Start 12/28/16 at 11:45 Prochlorperazine Edisylate (Compazine) 10 mg PRN Q6HRS PRN IV NAUSEA/VOMITING 2ND CHOICE Last administered on 12/31/16 04:14; Start 12/29/16 at 02:15 Flurbiprofen Sodium (Ocufen) 1 drop PRN QID PRN OD PAIN Last administered on 08:13; Start 12/29/16 at 02:15 Hydromorphone HCl 1 mg 1 mg PRN Q4HRS PRN IV SEVERE PAIN Last administered on 10:30; Start 12/29/16 at 02:15 Promethazine HCl/ Sodium Chloride (Phenergan/Iv Sodium Chloride 0.9% 50ml) 50.5 ml @ 151.5 mls/ hr PRN Q6HRS PRN IV NAUSEA/VOMITING; Start 12/29/16 at 05:00 Ibuprofen (Motrin) 600 mg TID PO Last administered on 12/31/16 08:13; Start at 14:00; Stop 12/31/16 at 20:07; Status DC Iohexol (Omnipaque 300 Mg/ml) 75 ml 1X ONCE IV Last administered on 12/29/16 16:31; Start 12/29/16 at 15:30; Stop 12/29/16 at 15:31; Status DC Info (Do NOT chart on this entry -- for MONITORING) 1 each PRN DAILY PRN MC SEE COMMENTS; Start 12/29/16 at 15:30; Stop 12/31/16 at 15:29; Status DC Multi-Ingredient Mouthwash/Gargle (Gi Cocktail Single Dose) 15 ml PRN 1X PRN SWSW CHEST PAIN Last administered on 12/31/16t 01:32; Start 12/30/16 at 12:30 Throat Lozenges (Cepacol Sore Throat Lozenge) 1 cale PRN Q2HRS PRN PO SORE THROAT; Start 12/30/16 at 12:30 Docusate Sodium (Colace) 100 mg PRN DAILY PRN PO CONSTIPATION; Start 12/31/16 at 14:15 Vitals/I & O Vital Sign - Last 24 Hours 12/31/16 12/31/16 12/31/16 12/31/16 12:58 12:59 15:00 17:20 Temp 97.8 97.8 Pulse 53 Resp 18 18 18 18 B/P 126/76 Pulse Ox 93 O2 Delivery Room Air Room Air Room Air Room Air 12/31/16 12/31/16 12/31/16 12/31/16 17:20 19:00 19:45 20:01 Temp 97.9 97.9 Pulse 55 Resp 18 18 20 B/P 163/94 Pulse Ox 95 93 O2 Delivery Room Air Room Air Room Air Room Air 12/31/16 12/31/16 12/31/16 12/31/16 20:01 21:01 21:40 23:02 Temp 97.9 97.9 Pulse 57 Resp 20 20 20 18 B/P 140/81 Pulse Ox 93 93 93 95 O2 Delivery Room Air Room Air Room Air Room Air 12/31/16 12/31/16 01/01/17 01/01/17 23:04 23:04 00:05 01:05 Resp 20 20 20 20 Pulse Ox 95 95 95 O2 Delivery Room Air Room Air Room Air 01/01/17 01/01/17 01/01/17 01/01/17 01:43 01:43 02:14 03:01 Temp 97.9 97.9 Pulse 56 Resp 20 20 20 18 B/P 139/81 Pulse Ox 95 95 96 O2 Delivery Room Air Room Air Room Air 01/01/17 01/01/17 01/01/17 01/01/17 03:40 03:40 04:15 04:45 Resp 20 20 Pulse Ox 96 96 96 96 O2 Delivery Room Air Room Air Room Air 01/01/17 01/01/17 01/01/17 01/01/17 05:49 05:50 06:32 06:50 Resp 20 20 20 Pulse Ox 96 96 96 96 O2 Delivery Room Air Room Air Room Air Room Air 01/01/17 01/01/17 01/01/17 01/01/17 07:00 08:00 08:34 08:35 Temp 97.5 97.5 Pulse 67 Resp 18 B/P 151/73 Pulse Ox 99 O2 Delivery Room Air Room Air Room Air Room Air 01/01/17 01/01/17 01/01/17 09:10 10:30 11:00 Temp 97.9 97.9 Pulse 81 Resp 18 18 B/P 139/86 Pulse Ox 98 O2 Delivery Room Air Room Air Room Air Intake and Output 12/31/16 12/31/16 01/01/17 15:00 23:00 07:00 Intake Total 240 ml 480 ml 240 ml Output Total 250 ml 1850 ml Balance 240 ml 230 ml -1610 ml FREDDY LIND III DO Jan 01, 2017 12:26
[2017-01-01] MEDS: FLURBIPROFEN 0.03% OD PRN (12:33)
[2017-01-01 15:00] VITALS: BP 129/82
[2017-01-01] MEDS: DO NOT USE 40 MG/0.4 ML DISP.SYRIN SQ SCH (17:31)
[2017-01-01 19:00] VITALS: BP 122/71
[2017-01-01] MEDS: PROCHLORPERAZINE 10 MG/2 ML VIAL. IV PRN (20:44)
[2017-01-01 23:00] VITALS: BP 150/123
[2017-01-02] MEDS ORDERED: hydrALAZINE 20 MG/ML VIAL. IVP PRN
[2017-01-02] MEDS: FENTANYL PF 100 MCG/2 ML VIAL. IV PRN ×2 (00:05→04:11)
[2017-01-02] MEDS: OXYCODONE/APAP 7.5/325 TABLET. PO PRN ×2 (00:05→04:10)
[2017-01-02] MEDS: POTASSIUM CL 20MEQ D5-0.45NACL 1,000 ML IV SCH ×2 (00:06→10:44)
[2017-01-02] MEDS: HYDROMORPHONE 2 MG/ML VIAL. IV PRN ×4 (01:31→15:22)
[2017-01-02] MEDS: OXYCODONE IR 5 MG TABLET. PO PRN ×3 (01:31→19:35)
[2017-01-02 03:55] VITALS: BP 128/82
[2017-01-02 05:25] LABS: BASO # 0.1 x10^3/uL (0.0-0.2); BASO % 1 % (0-3); EOS % 10 % (0-3); HEMATOCRIT 37.4 % (39.0-53.0); LYMPH # 1.9 x10^3/uL (1.0-4.8); LYMPH % 45 % (24-48); MEAN CORPUSCULAR HEMOGLOBIN 31 pg (25-35); MEAN CORPUSCULAR HGB CONC 35 g/dL (31-37); MEAN CORPUSCULAR VOLUME 89 fL (79-100); MONO % 11 % (0-9); NEUT % 33 % (31-73); PLATELET COUNT 308 x10^3/uL (140-400); RED BLOOD COUNT 4.22 x10^6/uL (4.30-5.70); WHITE BLOOD COUNT 4.1 x10^3/uL (4.0-11.0)
[2017-01-02 05:41] LABS: CALCIUM 9.6 mg/dL (8.5-10.1); GFR 82.3
[2017-01-02] MEDS: MEROPENEM 500 MG in IV NORMAL SALINE 50ML 50 ML IV SCH ×2 (06:11→15:21)
[2017-01-02 07:00] VITALS: BP 118/72
[2017-01-02] MEDS: POLYETHYLENE GLYCOL 3350 17 GM PACKET. PO SCH (09:00)
[2017-01-02] MEDS: TAMSULOSIN 0.4 MG CAP.ER.24H. PO SCH (09:53)
[2017-01-02] MEDS: MORPHINE ER 15 MG TABLET.ER PO SCH (09:54)
--- NOTE | 2017-01-02 10:26 | PDOC ---
Infectious Disease Note Subjective Subjective feeling better ROS ROS GEN: Denies fevers, chills, sweats HEENT: Denies blurred vision, sore throat CV: Denies chest pain RESP: Denies shortness of air, cough GI: Denies n/v/d NEURO: Denies confusion, dizziness MSK: Denies weakness, joint pain/swelling Vital Sign Vital Signs Vital Signs Date Time Temp Pulse Resp B/P Pulse Ox O2 Delivery O2 Flow Rate FiO2 01/02/17 09:54 Room Air 01/02/17 07:00 97.0 53 18 118/72 95 97.0 Physical Exam PHYSICAL EXAM GENERAL: NAD, Alert HEENT: PERRL, OC/OP,, rt upper eye with indurated area, also at the rt side of nose at zygoma abscess NECK: Supple, no JVD, no LN LUNGS: Clear HEART: S1S2, no gallop, no murmur ABD: Soft, NT, no organomegaly, no rebound EXT: No edema, no cyanosis SEASONAL CLERK: Alert, 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, no focal neurologic deficit SKIN: No rash IV: ok Labs Lab Laboratory Tests Test 01/02/17 04:45 White Blood Count 4.1x10^3/uL (4.0-11.0) Red Blood Count 4.22x10^6/uL (4.30-5.70) Hemoglobin 13.0g/dL (13.0-17.5) Hematocrit 37.4% (39.0-53.0) Mean Corpuscular Volume 89fL (79-100) Mean Corpuscular Hemoglobin 31pg (25-35) Mean Corpuscular Hemoglobin Concent 35g/dL (31-37) Red Cell Distribution Width 13.0% (11.5-14.5) Platelet Count 308x10^3/uL (140-400) Neutrophils (%) (Auto) 33% (31-73) Lymphocytes (%) (Auto) 45% (24-48) Monocytes (%) (Auto) 11% (0-9) Eosinophils (%) (Auto) 10% (0-3) Basophils (%) (Auto) 1% (0-3) Neutrophils # (Auto) 1.4x10^3uL (1.8-7.7) Lymphocytes # (Auto) 1.9x10^3/uL (1.0-4.8) Monocytes # (Auto) 0.4x10^3/uL (0.0-1.1) Eosinophils # (Auto) 0.4x10^3/uL (0.0-0.7) Basophils # (Auto) 0.1x10^3/uL (0.0-0.2) Sodium Level 138mmol/L (136-145) Potassium Level 4.0mmol/L (3.5-5.1) Chloride Level 102mmol/L (98-107) Carbon Dioxide Level 28mmol/L (21-32) Anion Gap 8 (6-14) Blood Urea Nitrogen 12mg/dL (8-26) Creatinine 1.0mg/dL (0.7-1.3) Estimated GFR (Cockcroft-Gault) 82.3 Glucose Level 106mg/dL (70-99) Calcium Level 9.6mg/dL (8.5-10.1) Objective Assessment Preseptal orbital cellulitis rt with facial cellulitis Hep C Fever Leukocytosis ? Orbital abscess Plan Plan of Care Meropenem zyvox ENT consult DIDIER HASSAN MD Jan 02, 2017 10:26
[2017-01-02 11:00] VITALS: BP 139/76
[2017-01-02] MEDS ORDERED: LINEZOLID 600 MG TABLET PO SCH (11:00)
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
--- NOTE | 2017-01-02 13:00 | PDOC ---
PROGRESS NOTES Chief Complaint Chief Complaint - Facial cellulitis - R orbital cellulitis - Hepatitis C - Urinary retention, chronic; followed by Dr. Duenas History of Present Illness History of Present Illness Patient with no acute events overnight. Little change in redness or swelling around the eye. Blurriness continues. Is agreeable to be seen by Dr. Barrios, [employer]. Bld cultures negative x5 days. Vitals Vitals Vital Signs Date Time Temp Pulse Resp B/P Pulse Ox O2 Delivery O2 Flow Rate FiO2 01/02/17 11:15 Room Air 01/02/17 11:00 97.6 72 18 139/76 97.6 01/02/17 07:00 95 Physical Exam General: Alert, Oriented X3, Cooperative, No acute distress Heart: Regular rate, Normal S1, Normal S2, No murmurs Lungs: Clear Abdomen: Normal bowel sounds, Soft Extremities: No clubbing, No edema Skin: Other (marked facial cellilits with swelling to periorbit, R eye somewhat swollen shut) Labs LABS Laboratory Tests Test 01/02/17 04:45 White Blood Count 4.1x10^3/uL (4.0-11.0) Red Blood Count 4.22x10^6/uL (4.30-5.70) Hemoglobin 13.0g/dL (13.0-17.5) Hematocrit 37.4% (39.0-53.0) Mean Corpuscular Volume 89fL (79-100) Mean Corpuscular Hemoglobin 31pg (25-35) Mean Corpuscular Hemoglobin Concent 35g/dL (31-37) Red Cell Distribution Width 13.0% (11.5-14.5) Platelet Count 308x10^3/uL (140-400) Neutrophils (%) (Auto) 33% (31-73) Lymphocytes (%) (Auto) 45% (24-48) Monocytes (%) (Auto) 11% (0-9) Eosinophils (%) (Auto) 10% (0-3) Basophils (%) (Auto) 1% (0-3) Neutrophils # (Auto) 1.4x10^3uL (1.8-7.7) Lymphocytes # (Auto) 1.9x10^3/uL (1.0-4.8) Monocytes # (Auto) 0.4x10^3/uL (0.0-1.1) Eosinophils # (Auto) 0.4x10^3/uL (0.0-0.7) Basophils # (Auto) 0.1x10^3/uL (0.0-0.2) Sodium Level 138mmol/L (136-145) Potassium Level 4.0mmol/L (3.5-5.1) Chloride Level 102mmol/L (98-107) Carbon Dioxide Level 28mmol/L (21-32) Anion Gap 8 (6-14) Blood Urea Nitrogen 12mg/dL (8-26) Creatinine 1.0mg/dL (0.7-1.3) Estimated GFR (Cockcroft-Gault) 82.3 Glucose Level 106mg/dL (70-99) Calcium Level 9.6mg/dL (8.5-10.1) Review of Systems Review of Systems denies fever, chills + persistent R face / orbital swelling and redness + persistent R eye blurriness + persistent impaired airflow through R nares Assessment and Plan Assessmemt and Plan Problems Medical Problems: (1) Cellulitis Status: Acute (2) Preseptal cellulitis of right eye Status: Acute ASSESSMENT: - Facial cellulitis - R orbital cellulitis - Hepatitis C - Urinary retention, chronic; followed by Dr. Duenas PLAN: - awaiting Ophthalmology recommendations; appreciate Dr. Barrios's input - per ID: cont Meropenem, Zyvox - per Urology: cont Flomax - cont PRN Dilaudid for pain control - repeat daily labs - follow blood cx; no growth 5 days Problems: Comment Review of Relevant I have reviewed the following items [place] (where applicable) has been applied. Labs Laboratory Tests Test 01/02/17 04:45 White Blood Count 4.1x10^3/uL (4.0-11.0) Red Blood Count 4.22x10^6/uL (4.30-5.70) Hemoglobin 13.0g/dL (13.0-17.5) Hematocrit 37.4% (39.0-53.0) Mean Corpuscular Volume 89fL (79-100) Mean Corpuscular Hemoglobin 31pg (25-35) Mean Corpuscular Hemoglobin Concent 35g/dL (31-37) Red Cell Distribution Width 13.0% (11.5-14.5) Platelet Count 308x10^3/uL (140-400) Neutrophils (%) (Auto) 33% (31-73) Lymphocytes (%) (Auto) 45% (24-48) Monocytes (%) (Auto) 11% (0-9) Eosinophils (%) (Auto) 10% (0-3) Basophils (%) (Auto) 1% (0-3) Neutrophils # (Auto) 1.4x10^3uL (1.8-7.7) Lymphocytes # (Auto) 1.9x10^3/uL (1.0-4.8) Monocytes # (Auto) 0.4x10^3/uL (0.0-1.1) Eosinophils # (Auto) 0.4x10^3/uL (0.0-0.7) Basophils # (Auto) 0.1x10^3/uL (0.0-0.2) Sodium Level 138mmol/L (136-145) Potassium Level 4.0mmol/L (3.5-5.1) Chloride Level 102mmol/L (98-107) Carbon Dioxide Level 28mmol/L (21-32) Anion Gap 8 (6-14) Blood Urea Nitrogen 12mg/dL (8-26) Creatinine 1.0mg/dL (0.7-1.3) Estimated GFR (Cockcroft-Gault) 82.3 Glucose Level 106mg/dL (70-99) Calcium Level 9.6mg/dL (8.5-10.1) Laboratory Tests Test 01/02/17 04:45 White Blood Count 4.1x10^3/uL (4.0-11.0) Red Blood Count 4.22x10^6/uL (4.30-5.70) Hemoglobin 13.0g/dL (13.0-17.5) Hematocrit 37.4% (39.0-53.0) Mean Corpuscular Volume 89fL (79-100) Mean Corpuscular Hemoglobin 31pg (25-35) Mean Corpuscular Hemoglobin Concent 35g/dL (31-37) Red Cell Distribution Width 13.0% (11.5-14.5) Platelet Count 308x10^3/uL (140-400) Neutrophils (%) (Auto) 33% (31-73) Lymphocytes (%) (Auto) 45% (24-48) Monocytes (%) (Auto) 11% (0-9) Eosinophils (%) (Auto) 10% (0-3) Basophils (%) (Auto) 1% (0-3) Neutrophils # (Auto) 1.4x10^3uL (1.8-7.7) Lymphocytes # (Auto) 1.9x10^3/uL (1.0-4.8) Monocytes # (Auto) 0.4x10^3/uL (0.0-1.1) Eosinophils # (Auto) 0.4x10^3/uL (0.0-0.7) Basophils # (Auto) 0.1x10^3/uL (0.0-0.2) Sodium Level 138mmol/L (136-145) Potassium Level 4.0mmol/L (3.5-5.1) Chloride Level 102mmol/L (98-107) Carbon Dioxide Level 28mmol/L (21-32) Anion Gap 8 (6-14) Blood Urea Nitrogen 12mg/dL (8-26) Creatinine 1.0mg/dL (0.7-1.3) Estimated GFR (Cockcroft-Gault) 82.3 Glucose Level 106mg/dL (70-99) Calcium Level 9.6mg/dL (8.5-10.1) Microbiology 12/27/16 Blood Culture - Final, Complete NO GROWTH AFTER 5 DAYS 01/01/17 Gram Stain - Final, Complete Medications Current Medications Sodium Chloride (Iv Sodium Chloride 0.9% 1000ml Bag) 1,000 ml @ 1,000 mls/hr Q1H IV Last administered on 12/27/16 12:19; Start 12/27/16 at 12:00; Stop at 12:59; Status DC Sodium Chloride (Normal Saline Flush) 10 ml QSHIFT PRN IV AFTER MEDS AND BLOOD DRAWS; Start 12/27/16 at 12:00 Fentanyl Citrate (Fentanyl 2ml Vial) 50 mcg 1X ONCE IV Last administered on 12:32; Start 12/27/16 at 12:00; Stop 12/27/16 at 12:07; Status DC Levofloxacin/ Dextrose 1 each 1 each PRN DAILY PRN MC SEE COMMENTS; Start 12/27 at 12:00; Stop 12/27/16 at 13:07; Status DC Levofloxacin/ Dextrose (LEVAQUIN 500mg PREMIX) 100 ml @ 100 mls/hr 1X ONCE IV Last administered on 12/27/16 12:34; Start 12/27/16 at 12:15; Stop 12/27/16 at 13:14; Status DC Vancomycin HCl 1 each 1 each PRN DAILY PRN MC SEE COMMENTS Last administered on 12/30/16 10:54; Start 12/27/16 at 13:15; Stop 12/31/16 at 06:42; Status DC Meropenem 500 mg/ Sodium Chloride 50 ml @ 100 mls/hr Q8HRS IV Last administered on 01/02/17 06:11; Start 12/27/16 at 22:00 Clindamycin Phosphate 50 ml @ 100 mls/hr Q8HRS IV Last administered on 06:01; Start 12/27/16 at 22:00; Stop 12/31/16 at 11:02; Status DC Vancomycin HCl 2 gm/Sodium Chloride 500 ml @ 250 mls/hr 1X ONCE IV Last administered on 12/27/16 16:11; Start 12/27/16 at 14:00; Stop 12/27/16 at 15:59 ; Status DC Clindamycin Phosphate 50 ml @ 100 mls/hr 1X ONCE IV Last administered on 12/27 13:44; Start 12/27/16 at 14:00; Stop 12/27/16 at 14:29; Status DC Meropenem/Sodium Chloride (Merrem/Iv Sodium Chloride 0.9% 50ml) 50 ml @ 100 mls /hr 1X ONCE IV Last administered on 12/27/16 14:37; Start 12/27/16 at 14:00; Stop 12/27/16 at 14:29; Status DC Iohexol (Omnipaque 300 Mg/ml) 75 ml 1X ONCE IV Last administered on 12/27/16 14:04; Start 12/27/16 at 13:30; Stop 12/27/16 at 13:33; Status DC Info (Do NOT chart on this entry -- for MONITORING) 1 each PRN DAILY PRN MC SEE COMMENTS; Start 12/27/16 at 13:45; Stop 12/29/16 at 13:44; Status DC Morphine Sulfate 5 mg 1X ONCE IV Last administered on 12/27/16 13:54; Start 12/27/16 at 13:45; Stop 12/27/16 at 13:46; Status DC Oxycodone/ Acetaminophen (Percocet 7.5/ 325) 1 tab PRN Q4HRS PRN PO MODERATE PAIN Last administered on 01/02/17 04:10; Start 12/27/16 at 15:00 Fentanyl Citrate (Fentanyl 2ml Vial) 75 mcg PRN Q2HR PRN IV PAIN Last administered on 12/28/16 08:26; Start 12/27/16 at 15:00; Stop 12/28/16 at 09:21 ; Status DC Diphenhydramine HCl (Benadryl) 50 mg 1X ONCE IVP Last administered on 15:11; Start 12/27/16 at 15:00; Stop 12/27/16 at 15:01; Status DC Diphenhydramine HCl (Benadryl) 50 mg PRN Q6HRS PRN PO ITCHING Last administered on 12/30/16 08:16; Start 12/27/16 at 15:00 Oxycodone HCl (Roxicodone) 10 mg PRN Q6HRS PRN PO PAIN Last administered on 08:26; Start 12/27/16 at 15:00; Stop 12/28/16 at 09:21; Status DC Enoxaparin Sodium (Lovenox Per Pharmacy Prophylaxis Dosing) 1 each PRN DAILY PRN MC SEE COMMENTS; Start 12/27/16 at 15:00; Stop 01/02/17 at 11:55; Status DC Polyethylene Glycol (miraLAX PACKET) 17 gm DAILY PO ; Start 12/27/16 at 15:00 Docusate Sodium (Colace) 100 mg PRN DAILY PRN PO CONSTIPATION; Start 12/27/16 at 15:00; Stop 12/31/16 at 14:10; Status DC Potassium Chloride (Klor-Con) 20 meq 1X ONCE PO Last administered on 15:11; Start 12/27/16 at 15:00; Stop 12/27/16 at 15:01; Status DC Enoxaparin Sodium (Lovenox 40mg Syringe) 40 mg Q24H SQ Last administered on 17:31; Start 12/27/16 at 16:00 Tamsulosin HCl 0.4 mg 0.4 mg BID PO Last administered on 01/02/17 09:53; Start 12/27/16 at 21:00 Vancomycin HCl/ Sodium Chloride (Iv Sodium Chloride 0.9% 500ml Bag) 500 ml @ 250 mls/hr Q8H IV Last administered on 12/31/16 00:26; Start 12/28/16 at 00:00 ; Stop 12/31/16 at 06:39; Status DC Vancomycin HCl 1 each 1X ONCE MC ; Start 12/28/16 at 15:30; Stop 12/28/16 at 15 :31; Status DC Fentanyl Citrate (Fentanyl 2ml Vial) 100 mcg PRN Q2HR PRN IV MODERATE PAIN Last administered on 01/02/17 04:11; Start 12/28/16 at 09:30 Oxycodone HCl (Roxicodone) 10 mg PRN Q4HRS PRN PO SEVERE PAIN Last administered on 01/02/17 06:11; Start 12/28/16 at 13:32 Morphine Sulfate (Ms Contin) 30 mg 1X ONCE PO Last administered on 12/28/16 09:42; Start 12/28/16 at 09:30; Stop 12/28/16 at 09:31; Status DC Ketorolac Tromethamine (Toradol) 30 mg 1X ONCE IV Last administered on 10:36; Start 12/28/16 at 10:00; Stop 12/28/16 at 10:14; Status DC Ketorolac Tromethamine 15 mg 15 mg PRN Q6HRS PRN IV PAIN Last administered on 08:09; Start 12/28/16 at 10:00; Stop 12/30/16 at 14:32; Status DC Potassium Chloride/Dextrose/ Sod Cl (KCl 20 Meq In D5W-1/2 NS) 1,000 ml @ 100 mls/hr Q10H IV Last administered on 01/02/17 10:44; Start 12/28/16 at 10:00 Morphine Sulfate (Ms Contin) 15 mg BID PO Last administered on 01/02/17 09:54 ; Start 12/28/16 at 11:00 Ondansetron HCl (Zofran) 4 mg PRN Q6HRS PRN IV NAUSEA/VOMITING 1ST CHOICE Last administered on 01/01/17 17:38; Start 12/28/16 at 11:45 Prochlorperazine Edisylate (Compazine) 10 mg PRN Q6HRS PRN IV NAUSEA/VOMITING 2ND CHOICE Last administered on 01/01/17 20:44; Start 12/29/16 at 02:15 Flurbiprofen Sodium (Ocufen) 1 drop PRN QID PRN OD PAIN Last administered on 12:33; Start 12/29/16 at 02:15 Hydromorphone HCl 1 mg 1 mg PRN Q4HRS PRN IV SEVERE PAIN Last administered on 10:45; Start 12/29/16 at 02:15 Promethazine HCl/ Sodium Chloride (Phenergan/Iv Sodium Chloride 0.9% 50ml) 50.5 ml @ 151.5 mls/ hr PRN Q6HRS PRN IV NAUSEA/VOMITING; Start 12/29/16 at 05:00 Ibuprofen (Motrin) 600 mg TID PO Last administered on 12/31/16 08:13; Start at 14:00; Stop 12/31/16 at 20:07; Status DC Iohexol (Omnipaque 300 Mg/ml) 75 ml 1X ONCE IV Last administered on 12/29/16 16:31; Start 12/29/16 at 15:30; Stop 12/29/16 at 15:31; Status DC Info (Do NOT chart on this entry -- for MONITORING) 1 each PRN DAILY PRN MC SEE COMMENTS; Start 12/29/16 at 15:30; Stop 12/31/16 at 15:29; Status DC Multi-Ingredient Mouthwash/Gargle (Gi Cocktail Single Dose) 15 ml PRN 1X PRN SWSW CHEST PAIN Last administered on 12/31/16 01:32; Start 12/30/16 at 12:30 Throat Lozenges (Cepacol Sore Throat Lozenge) 1 cale PRN Q2HRS PRN PO SORE THROAT; Start 12/30/16 at 12:30 Docusate Sodium (Colace) 100 mg PRN DAILY PRN PO CONSTIPATION; Start 12/31/16 at 14:15 Hydralazine HCl (Apresoline) 10 mg PRN 1X PRN IVP HYPERTENSION, SEE COMMENTS; Start 01/02/17 at 00:00 Linezolid (Zyvox) 600 mg BID PO Last administered on 01/02/17t 10:44; Start at 11:00 Vitals/I & O Vital Sign - Last 24 Hours 01/01/17 01/01/17 01/01/17 01/01/17 13:59 15:00 17:31 17:32 Temp 98.2 98.2 Pulse 62 Resp 18 18 18 18 B/P 129/82 Pulse Ox 95 O2 Delivery Room Air Room Air Room Air Room Air 01/01/17 01/01/17 01/01/17 01/01/17 19:00 20:15 20:44 20:45 Temp 98.2 98.2 Pulse 60 Resp 18 18 20 B/P 122/71 Pulse Ox 96 96 96 O2 Delivery Room Air Room Air Room Air Room Air 01/01/17 01/01/17 01/01/17 01/01/17 21:20 21:49 21:50 23:00 Temp 98.1 98.1 Pulse 108 Resp 20 20 18 18 B/P 150/123 Pulse Ox 96 96 97 O2 Delivery Room Air Room Air Room Air 01/02/17 01/02/17 01/02/17 01/02/17 00:05 00:05 00:43 00:43 Resp 20 20 20 20 Pulse Ox 97 97 97 O2 Delivery Room Air Room Air Room Air 01/02/17 01/02/17 01/02/17 01/02/17 01:05 01:31 01:31 02:09 Resp 20 20 20 Pulse Ox 97 97 97 O2 Delivery Room Air Room Air 01/02/17 01/02/17 01/02/17 01/02/17 02:51 03:55 04:10 04:11 Temp 97.0 97.0 Pulse 66 Resp 20 18 20 20 B/P 128/82 Pulse Ox 97 93 97 97 O2 Delivery Room Air Room Air Room Air 01/02/17 01/02/17 01/02/17 01/02/17 04:45 05:27 06:11 06:11 Resp 20 20 Pulse Ox 97 97 97 97 O2 Delivery Room Air Room Air Room Air Room Air 01/02/17 01/02/17 01/02/17 01/02/17 07:00 07:11 07:30 09:54 Temp 97.0 97.0 Pulse 53 Resp 18 B/P 118/72 Pulse Ox 95 O2 Delivery Room Air Room Air Room Air Room Air 01/02/17 01/02/17 01/02/17 10:45 11:00 11:15 Temp 97.6 97.6 Pulse 72 Resp 18 B/P 139/76 O2 Delivery Room Air Room Air Room Air Intake and Output 01/01/17 01/01/17 01/02/17 15:00 23:00 07:00 Intake Total 2470 ml Output Total 325 ml Balance -325 ml 2470 ml FREDDY ILND III DO Jan 02, 2017 13:00
[2017-01-02 15:00] VITALS: BP 130/83
[2017-01-02] MEDS: DO NOT USE 40 MG/0.4 ML DISP.SYRIN SQ SCH (16:00)
== END 2017-01-02 20:02 | DRG 121 ==
LOC: ER 10:52 → EEVIPCON 10:52 → 4 NORTH 13:00
PROVIDERS: ADMIT Internal Medicine; ATTEND Internal Medicine
DX: H05.011 Cellulitis of right orbit (principal); L03.211 Cellulitis of face; E44.1 Mild protein-calorie malnutrition; R65.10 Systemic inflammatory response syndrome (SIRS) of non-infectious origin without acute organ dysfunction; L03.213 Periorbital cellulitis; B19.20 Unspecified viral hepatitis C without hepatic coma; Y04.0XXA Assault by unarmed brawl or fight, initial encounter; R33.9 Retention of urine, unspecified; E66.3 Overweight; K90.0 Celiac disease; Z68.30 Body mass index [BMI] 30.0-30.9, adult; Z88.0 Allergy status to penicillin; Z88.8 Allergy status to other drugs, medicaments and biological substances
CPT/HCPCS: 36415; 70487; 70491; 80048; 80053; 80202; 81001; 83605; 85027; 85651; 86140; 86803; 87040; 87071; 87075; 87205; 87641; 96365; 96375; J0780; J1170; J1200; J1650; J1885; J1956; J2185; J2270; J2405; J3010; J3370; J3490; J7030; J7040; Q0163; Q9967; 99285-25

== ENCOUNTER 2018-05-16 17:25 | Emergency (ER) | payer OTHER ==
[~2018-05-16] VITALS: Ht 188 cm; Wt 108.9 kg
--- NOTE | 2018-05-16 19:13 | PHYS DOC ---
Past Medical History Past Medical History: COPD, Prostatitis, Other Additional Past Medical Histor: oribtal cellulitis, celiac disease Past Surgical History: Other Additional Past Surgical Histo: R eye surgery, finger and thumb, bilat knee surgery Alcohol Use: None Drug Use: None Adult General Chief Complaint Chief Complaint: OTHER COMPLAINTS HPI HPI Patient is a 43-year-old male who presents with complaint of left arm swelling and redness. Patient had foreign body removed from his hand 8 days ago. Patient states that he has had abscesses to the arm in the past and he states he has a lot of pain in the arm. He reports swelling is moderate. He denies any fever. States the pain is worsened with movement of the arm as well as palpation. He denies chest pain or shortness of breath. He states that nothing improves the symptoms. He does indicate that he received a total of 5 days of IV antibiotics which have since been completed. Review of Systems Review of Systems Constitutional: Denies fever or chills [] Respiratory: Denies cough or shortness of breath [] Cardiovascular: Denies chest pain[] GI: Denies abdominal pain, nausea, vomiting or diarrhea [] Musculoskeletal: Complains of left forearm pain and swelling[] Integument: Denies rash or skin lesions [] All other systems were reviewed and found to be within normal limits, except as documented in this note. Allergies Allergies Allergies Coded Allergies Type Severity Reaction Last Updated Verified Penicillins Allergy Intermediate face swelling 12/27/16 Yes gabapentin Allergy Intermediate 12/29/16 Yes gluten Allergy Intermediate 12/29/16 Yes tramadol Allergy Intermediate 12/29/16 Yes ibuprofen Adverse Reaction Intermediate N/V 12/29/16 Yes Physical Exam Physical Exam Constitutional: Well developed, well nourished, no acute distress, non-toxic appearance. [] HENT: Normocephalic, atraumatic, bilateral external ears normal, oropharynx moist, no oral exudates, nose normal. [] Eyes: PERRLA, EOMI, conjunctiva normal, no discharge. [] Neck: Normal range of motion, no tenderness, supple, no stridor. [] Cardiovascular:Heart rate regular rhythm [] Lungs & Thorax: Bilateral breath sounds clear to auscultation [] Abdomen: Bowel sounds normal. [] Skin: Warm, dry, no erythema, no rash. [] Extremities: Left forearm demonstrates what appears to be minimal soft tissue swelling throughout. No definite erythema is noted although difficult to identify as entire arm is tattooed. There is no abnormal warmth noted to the extremity. [] Neurologic: Alert and oriented X 3, normal motor function, normal sensory function, no focal deficits noted. [] Current Patient Data Vital Signs Vital Signs Date Time Temp Pulse Resp B/P (MAP) Pulse Ox O2 Delivery O2 Flow Rate FiO2 05/16/18 18:44 98.4 73 18 169/90 (116) 98 Room Air 98.4 Lab Values Laboratory Tests Test 05/16/18 19:34 White Blood Count 4.9 x10^3/uL (4.0-11.0) Red Blood Count 4.36 x10^6/uL (4.30-5.70) Hemoglobin 13.8 g/dL (13.0-17.5) Hematocrit 39.3 % (39.0-53.0) Mean Corpuscular Volume 90 fL (79-100) Mean Corpuscular Hemoglobin 32 pg (25-35) Mean Corpuscular Hemoglobin Concent 35 g/dL (31-37) Red Cell Distribution Width 13.2 % (11.5-14.5) Platelet Count 254 x10^3/uL (140-400) Neutrophils (%) (Auto) 47 % (31-73) Lymphocytes (%) (Auto) 42 % (24-48) Monocytes (%) (Auto) 8 % (0-9) Eosinophils (%) (Auto) 3 % (0-3) Basophils (%) (Auto) 1 % (0-3) Neutrophils # (Auto) 2.3 x10^3uL (1.8-7.7) Lymphocytes # (Auto) 2.0 x10^3/uL (1.0-4.8) Monocytes # (Auto) 0.4 x10^3/uL (0.0-1.1) Eosinophils # (Auto) 0.1 x10^3/uL (0.0-0.7) Basophils # (Auto) 0.0 x10^3/uL (0.0-0.2) Sodium Level 141 mmol/L (136-145) Potassium Level 3.7 mmol/L (3.5-5.1) Chloride Level 105 mmol/L (98-107) Carbon Dioxide Level 28 mmol/L (21-32) Anion Gap 8 (6-14) Blood Urea Nitrogen 9 mg/dL (8-26) Creatinine 0.9 mg/dL (0.7-1.3) Estimated GFR (Cockcroft-Gault) 92.1 BUN/Creatinine Ratio 10 (6-20) Glucose Level 106 mg/dL (70-99) H Calcium Level 9.1 mg/dL (8.5-10.1) Total Bilirubin 0.4 mg/dL (0.2-1.0) Aspartate Amino Transferase (AST) 33 U/L (15-37) Alanine Aminotransferase (ALT) 38 U/L (16-63) Alkaline Phosphatase 71 U/L (46-116) C-Reactive Protein, Quantitative 1.3 mg/L (0-3.3) Total Protein 7.8 g/dL (6.4-8.2) Albumin 4.0 g/dL (3.4-5.0) Albumin/Globulin Ratio 1.1 (1.0-1.7) Laboratory Tests 05/16/18 19:34 Laboratory Tests 05/16/18 19:34 EKG EKG [] Radiology/Procedures Radiology/Procedures [] Impressions: For sounds of the left upper extremity demonstrates no findings for abscess/ fluid collections or DVT Course & Med Decision Making Course & Med Decision Making Pertinent Labs and Imaging studies reviewed. (See chart for details) [] Dragon Disclaimer Dragon Disclaimer This electronic medical record was generated, in whole or in part, using a voice recognition dictation system. Departure Departure Impression: Primary Impression: Cellulitis Disposition: 01 HOME, SELF-CARE Condition: STABLE Referrals: NO PCP (PCP) Patient Instructions: Cellulitis Additional Instructions: Take prescribed medication as directed and follow up with primary provider in the next 3-5 days. Scripts Doxycycline Monohydrate (DOXYCYCLINE MONOHYDRATE) 100 Mg Capsule 1 CAP PO BID, #20 CAP Prov: ADRIANNA CASON Jr. DO 05/16/18 Problem Qualifiers Primary Impression: Cellulitis Site of cellulitis: extremity Site of cellulitis of extremity: upper extremity Laterality: left Qualified Codes: L03.114 - Cellulitis of left upper limb ADRIANNA CASON Jr. DO May 16, 2018 19:13
[2018-05-16 19:39] LABS: BASO % 1 % (0-3); EOS # 0.1 x10^3/uL (0.0-0.7); EOS % 3 % (0-3); HEMATOCRIT 39.3 % (39.0-53.0); HEMOGLOBIN 13.8 g/dL (13.0-17.5); LYMPH % 42 % (24-48); MEAN CORPUSCULAR HEMOGLOBIN 32 pg (25-35); MEAN CORPUSCULAR HGB CONC 35 g/dL (31-37); MEAN CORPUSCULAR VOLUME 90 fL (79-100); MONO # 0.4 x10^3/uL (0.0-1.1); MONO % 8 % (0-9); NEUT # 2.3 x10^3uL (1.8-7.7); NEUT % 47 % (31-73); PLATELET COUNT 254 x10^3/uL (140-400); RED BLOOD COUNT 4.36 x10^6/uL (4.30-5.70); RED CELL DISTRIBUTION WIDTH 13.2 % (11.5-14.5); WHITE BLOOD COUNT 4.9 x10^3/uL (4.0-11.0)
[2018-05-16 20:05] LABS: CALCIUM 9.1 mg/dL (8.5-10.1); CREATININE 0.9 mg/dL (0.7-1.3); GFR 92.1; POTASSIUM 3.7 mmol/L (3.5-5.1)
[2018-05-16 20:11] LABS: ALBUMIN/GLOBULIN RATIO 1.1 (1.0-1.7); C-REACTIVE PROTEIN 1.3 mg/L (0-3.3); TOTAL BILIRUBIN 0.4 mg/dL (0.2-1.0); TOTAL PROTEIN 7.8 g/dL (6.4-8.2)
--- NOTE | 2018-05-16 22:20 | RAD ---
Left upper extremity venous duplex study 05/16/2018 CLINICAL HISTORY: Left hand surgery 8 days ago with redness and swelling involving the left arm. TECHNIQUE: Using a combination of real-time ultrasound imaging and color-flow and pulse Doppler imaging techniques along with graded compression and augmentation, duplex evaluation of the major venous structures of the left upper extremity was performed to include the left internal jugular and left subclavian veins. Multiple images were obtained. FINDINGS: There is no sonographic evidence of venous thrombosis involving the visualized venous structures of the left upper extremity. Edema is seen within the soft tissues in the area of the patient's swelling. No abnormal fluid collection is seen to suggest evidence of an abscess. IMPRESSION: Negative study. Electronically signed by: Anurag Palma MD (05/16/2018 10:16 PM) [facility]
[2018-05-16 22:44] VITALS: BP 147/84
[2018-05-16] MEDS ORDERED: DOXY100C14 PO (22:51)
== END 2018-05-16 23:07 | disposition home or self-care (01) ==
LOC: ER 17:25 → EEVIPCON 17:25 → ER 23:07
DX: L03.114 Cellulitis of left upper limb (principal); J44.9 Chronic obstructive pulmonary disease, unspecified; Z88.0 Allergy status to penicillin; Z88.8 Allergy status to other drugs, medicaments and biological substances
CPT/HCPCS: 36415; 80053; 85025; 86140; 93971; 99285-25

== ENCOUNTER → 2019-11-11 | Day surgery (SDC) | payer OTHER ==
[~2019-11-11] MED LIST: DOXY100C14 PO; IV RINGERS,LACTATED 1000ML 1,000 ML IV ONE; LIDOCAINE 2% PF 5 ML VIAL. ONE; PROPOFOL 40 ML IV ONE
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
[2019-11-11 08:49] VITALS: BP 127/74
== END | disposition home or self-care (01) ==
LOC: SURG 07:11 → EEVIPCON 07:30
PROVIDERS: ATTEND Internal Medicine Gastroenterology
DX: K59.00 Constipation, unspecified (principal); K64.0 First degree hemorrhoids; K63.89 Other specified diseases of intestine; Z86.010 Personal history of colon polyps; Z86.19 Personal history of other infectious and parasitic diseases; Z88.6 Allergy status to analgesic agent; Z88.1 Allergy status to other antibiotic agents; Z88.0 Allergy status to penicillin; Z88.8 Allergy status to other drugs, medicaments and biological substances; Z98.890 Other specified postprocedural states
CPT/HCPCS: 45378; J2001; J2704